=== PATIENT | male | born 1950 | race African-American/Black ===

== ENCOUNTER 2017-03-15 17:44 | Inpatient (IN) | payer MEDICARE ==
--- NOTE | 2017-03-15 21:01 | PDOC.EVN ---
Event Note - Event Note Event Note: [id number] H&P Dictated 1. Pneumonia 2. Acute copd exacerbation 3. HTN 4. Chronic respiratory failure plan: see orders
[2017-03-15 21:11] LABS: Oxyhemoglobin 87.9 % (94.0-97.0); Sodium 139 mmol/L (135-148)
[2017-03-15 21:14] LABS: Mode Nasal Cannula; Modified Allen's Test POSITIVE; Vent NO
[2017-03-15] MEDS ORDERED: HYDROcodone/Acetaminophen 5/325 mg Tablet PO PRN (21:19)
[2017-03-15] MEDS ORDERED: Ondansetron HCl/PF 4 MG/2 ML Vial IVP PRN (21:19)
[2017-03-15] MEDS ORDERED: Acetaminophen 325 MG TAB PO PRN (21:19)
[2017-03-15 21:33] LABS: Troponin I 0.031 ng/mL (< 0.028)
[2017-03-15] MEDS ORDERED: Vancomycin HCl 1.5 GM in Sodium Chloride 0.9% 250 ML 300 ML IVPB SCH (23:00)
[2017-03-15 23:48] LABS: Troponin I 0.019 ng/mL (< 0.028)
[2017-03-16 00:56] VITALS: BMI 22.3
[2017-03-16] MEDS: Sodium Chloride 0.9% 1,000 ML IV SCH ×2 (01:40→17:42)
[2017-03-16] MEDS: methylPREDNISolone Sod Succ/PF 125 MG/2 ML VIAL IVP SCH ×3 (01:54→13:17)
[2017-03-16] MEDS: Piperacillin/Tazobactam 3.375 GM in Sodium Chloride 0.9% 100 ML IVPB SCH ×5 (02:01→23:19)
[2017-03-16] MEDS: Vancomycin HCl 1.5 GM in Sodium Chloride 0.9% 250 ML 300 ML IVPB SCH ×2 (02:58→13:22)
[2017-03-16 05:46] LABS: Band 11 % (5-11); Hematocrit 46.8 % (42.0-52.0); Neutrophil 84 % (42-75); Red Blood Cell (RBC) Count 4.69 mill/uL (4.70-6.10); White Blood Cell (WBC) Count 15.4 thou/uL (4.8-10.8)
[2017-03-16 06:06] LABS: Anion Gap 13 mmol/L (10-20); BUN (Urea Nitrogen) 9 mg/dL (8.4-25.7); Calc. Creatinine Clearance 113 mL/min (70-130); Calcium 9.6 mg/dL (7.8-10.44); Carbon Dioxide 32 mmol/L (23-31); Chloride 97 mmol/L (98-107); Estimated GFR-MDRD Greater than 90
[2017-03-16 06:13] LABS: Troponin I 0.025 ng/mL (< 0.028)
--- NOTE | 2017-03-16 06:22 | HP ---
DATE OF ADMISSION: 03/15/2017 CHIEF COMPLAINT: Dyspnea. HISTORY OF PRESENT ILLNESS: Patient is a 66-year-old male with past medical history of COPD, chronic respiratory failure, hypertension, now came to ER complaining of dyspnea. Dyspnea started all of sudden, constant, it has been going on for the past 1 week. Also had sputum production, sputum brown in color. Complains of some low-grade fever and chills also. Patient initially went to outside ER and patient was transferred here. Patient also says he has been intubated in the past, and the last COPD exacerbation was 2 years back. PAST MEDICAL HISTORY: Hypertension, COPD, chronic respiratory failure. PAST SURGICAL HISTORY: None. SOCIAL HISTORY: He used to smoke, but not smoke anymore. Denies alcohol, denies any drugs. FAMILY HISTORY: Positive for heart problems. REVIEW OF SYSTEMS: Constitutional: Positive for fever and chills. Eyes: Denies any vision problems. Ears: Denies any hearing loss. Neck: Denies any neck pain. Cardiovascular System: Denies any chest pain. Positive for chest tightness. Respiratory System: Positive for cough and sputum production. Positive for dyspnea. Gastrointestinal: Denies nausea, vomiting. Cranial nerve system: Denies syncope. Psychiatric: Denies anxiety. Integument: Denies any rash. Musculoskeletal: Denies any joint deformities. All other review of systems are reviewed and are negative. PHYSICAL EXAMINATION: CONSTITUTIONAL/VITAL SIGNS: At the time of H&P performed, blood pressure is 112 /71, heart rate 109, pulse ox 93% on oxygen. GENERAL: The patient appears tired. HEENT: Anterior nares patent. Nose normal. Ears normal. Teeth intact. Tongue is moist. NECK: Supple. No JVD. CARDIOVASCULAR SYSTEM: S1, S2 present. Tachycardic. No murmurs, no rubs, no gallops. RESPIRATORY SYSTEM: Diminished air entry bilaterally. Positive for wheezing. Mild tachypnea seen. GASTROINTESTINAL: Abdomen is soft, nontender, no guarding, no organomegaly, no masses felt. INTEGUMENTARY: No rashes are seen. CRANIAL NERVES SYSTEM: Cranial nerves intact. Follows commands. Strength intact. Sensory intact. PSYCHIATRIC: Mood appropriate at this time. MUSCULOSKELETAL: No edema. LABORATORY DATA: At the time of H&P performed sodium 141, potassium 3.6, chloride 94, CO2 of 33, BUN of 10, creatinine of 0.79. CBC showed white count 12, hemoglobin 15.1, platelet count is 336. IMAGING: Chest x-ray, CT chest, positive for moderate sensitivity study showing no evidence of pulmonary embolism in the larger arterial branches, small emboli and more peripheral ones would be missed in this study and emphysematous changes seen with extensive severe lung consolidation. ASSESSMENT AND PLAN: The patient is 66-year-old male: 1. Pneumonia. Plan to start patient on broad spectrum antibiotics. Plan to admit the patient to the hospital and monitor patient closely. 2. Acute chronic obstructive pulmonary disease exacerbation. Plan to start the patient on breathing treatments and IV steroids. We will go ahead and check ABG stat. If ABG shows respiratory acidosis we will go ahead and place the patient on BiPAP. We will monitor respiratory status closely. 3. Hypertension. Monitor blood pressure. Continue home blood pressure meds. 4. Chronic respiratory failure. Continue oxygen nasal cannula. Case was discussed in detail with the patient and patient's also. LEON
[2017-03-16] MEDS: Enoxaparin Sodium 40 MG/0.4 ML SYRINGE SC SCH (09:08)
[2017-03-16] MEDS ORDERED: Benzonatate 100 MG CAP PO PRN (09:33)
[2017-03-16] MEDS ORDERED: hydrALAZINE 20 MG/ML VIAL SLOW IVP PRN (09:36)
--- NOTE | 2017-03-16 17:43 | PDOC.PN ---
- Subjective Encounter Start Date: 03/16/17 Encounter Start Time: 17:41 Patient seen and examined. No new complaints. No overnight events - Objective MAR Reviewed: Yes Vital Signs & Weight: Vital Signs (12 hours) Temp Pulse Resp BP BP Pulse Ox 03/16/17 16:54 97.7 F 99 16 154/74 H 90 L 03/16/17 16:23 102 H 16 03/16/17 11:49 96 16 03/16/17 11:34 97.9 F 96 20 116/65 98 03/16/17 08:00 98.8 F 100 16 97 03/16/17 07:52 90 L 03/16/17 07:49 100 16 03/16/17 07:48 98.8 F 98 18 150/75 H 97 Weight Weight 174 lb I&O: 03/15/17 03/16/17 03/17/17 06:59 06:59 06:59 Intake Total 1910 Output Total 700 Balance 1210 Result Diagrams: 03/16/17 04:59 03/16/17 04:59 Phys Exam - Physical Examination Constitutional: NAD HEENT: PERRLA Neck: no nodes coarse bs, some scattered rhonchi Cardiovascular: RRR Gastrointestinal: non-tender Musculoskeletal: no edema Neurological: normal sensation Psychiatric: A&O x 3 Dx/Plan (1) Sepsis Code(s): A41.9 - SEPSIS, UNSPECIFIED ORGANISM Status: Acute (2) PNA (pneumonia) Code(s): J18.9 - PNEUMONIA, UNSPECIFIED ORGANISM Status: Acute (3) HTN (hypertension) Code(s): I10 - ESSENTIAL (PRIMARY) HYPERTENSION Status: Acute (4) Acute and chronic respiratory failure ([id number]) Code(s): J96.20 - ACUTE AND CHR RESP FAILURE, UNSP W HYPOXIA OR HYPERCAPNIA Status: Acute (5) COPD exacerbation Code(s): J44.1 - CHRONIC OBSTRUCTIVE PULMONARY DISEASE W (ACUTE) EXACERBATION Status: Acute - Plan * cont currents mx * f/u labs * f/u pulm rec's
--- NOTE | 2017-03-16 18:12 | CON ---
DATE OF CONSULTATION: 03/16/2017 Mr. Oliver is a patient of mine for quite some time. He presented with complaints of shortness of br eath. He says he got out of the car to get the mail the other day before Thanksgiving when it was ra ining and by the time he got back in the car he was soaked. Over the weekend he started getting shor t of breath and coughing and subsequently presented and has been admitted to the hospital. He has had some purulent sputum. He came over from I believe the [place] ER and was subsequently admitted. PAST MEDICAL HISTORY: Remarkable for, 1. Hypertension. 2. History of COPD. 3. History of chronic respiratory failure, on home oxygen. 4. History of mechanical ventilation in the past. He quit smoking after that event and has done rel atively well since that time and he has remained relatively hospital free. 5. History of an admission in 06/2014 requiring noninvasive ventilation. FAMILY HISTORY: Positive for asthma. SOCIAL HISTORY: He is a nonsmoker, nondrinker now, former smoker. ALLERGIES: He has no drug allergies. REVIEW OF SYSTEMS: Otherwise negative. He says he feels better than he felt when he presented. PHYSICAL EXAMINATION: GENERAL: He is afebrile, heart rate 96, respiratory rate 20, blood pressure 116/65. HEENT: Pupils are equal. Sclerae is anicteric. NECK: Supple. LUNGS: Distant and equal slightly prolonged expiratory phase. HEART: Regular rhythm, distant S1 and S2. ABDOMEN: Soft and nontender. EXTREMITIES: Without asymmetry. LABORATORY DATA: White count 15.4, hemoglobin 14.5, platelets 324. Sodium 138, potassium 4, chlorid e 97, bicarbonate 32, BUN 9, creatinine 0.7. Blood gas, pH 7.40, CO2 57, pO2 59. Chest CT done over in [place] showed bibasilar infiltrates, extensive bullous disease is identified. IMPRESSION: 1. Community-acquired pneumonia. 2. Underlying severe chronic obstructive pulmonary disease. 3. Chronic respiratory failure, on home oxygen. 4. Steroid dependence. PLAN: Antibiotics, steroids, nebulizer treatments, hydration, serial exams. We will follow with the other physicians caring for her.
[2017-03-17] MEDS: Piperacillin/Tazobactam 3.375 GM in Sodium Chloride 0.9% 100 ML IVPB SCH ×2 (05:13→12:29)
[2017-03-17 05:27] LABS: Anion Gap 9 mmol/L (10-20); BUN (Urea Nitrogen) 14 mg/dL (8.4-25.7); Calc. Creatinine Clearance 111 mL/min (70-130); Calcium 9.3 mg/dL (7.8-10.44); Carbon Dioxide 37 mmol/L (23-31); Chloride 99 mmol/L (98-107); Estimated GFR-MDRD Greater than 90
[2017-03-17] MEDS: Sodium Chloride 0.9% 1,000 ML IV SCH (05:49)
[2017-03-17 06:11] LABS: Band 5 % (5-11); Hematocrit 42.2 % (42.0-52.0); Macrocytosis SLIGHT = 6-15 cells (100X) (0-5/hpf); Neutrophil 87 % (42-75); Polychromasia SLIGHT = 2-3 cells (100X) (0-2/hpf); Reactive Lymphocytes 1 % (0-10); White Blood Cell (WBC) Count 17.3 thou/uL (4.8-10.8)
[2017-03-17] MEDS: Atorvastatin Calcium 20 MG TAB PO SCH (09:49)
[2017-03-17] MEDS: Amlodipine 5 MG TAB PO SCH (09:49)
[2017-03-17] MEDS: Azithromycin 250 MG TAB PO SCH (09:49)
[2017-03-17] MEDS: Enoxaparin Sodium 40 MG/0.4 ML SYRINGE SC SCH (09:50)
--- NOTE | 2017-03-17 14:43 | PDOC.PN ---
- Subjective Encounter Start Date: 03/17/17 Encounter Start Time: 14:42 Patient seen and examined. No new complaints. No overnight events - Objective MAR Reviewed: Yes Vital Signs & Weight: Vital Signs (12 hours) Temp Pulse Resp BP Pulse Ox 03/17/17 12:22 97.8 F 92 18 124/64 93 L 03/17/17 11:00 96 16 03/17/17 09:50 97.9 F 96 18 95 03/17/17 09:49 95 03/17/17 09:44 97.9 F 95 18 131/72 95 03/17/17 07:00 96 03/17/17 06:54 100 16 03/17/17 05:05 97.6 F 96 20 142/70 H 96 Weight Weight 179 lb 4.8 oz I&O: 03/16/17 03/17/17 03/18/17 06:59 06:59 06:59 Intake Total 3290 Output Total 1575 Balance 1715 Result Diagrams: 03/17/17 04:42 03/17/17 04:42 Phys Exam - Physical Examination Constitutional: NAD HEENT: PERRLA Neck: no JVD coarse bs Cardiovascular: no significant murmur Gastrointestinal: non-tender Musculoskeletal: pulses present Neurological: moves all 4 limbs Psychiatric: A&O x 3 Dx/Plan (1) Sepsis Code(s): A41.9 - SEPSIS, UNSPECIFIED ORGANISM Status: Acute (2) PNA (pneumonia) Code(s): J18.9 - PNEUMONIA, UNSPECIFIED ORGANISM Status: Acute (3) HTN (hypertension) Code(s): I10 - ESSENTIAL (PRIMARY) HYPERTENSION Status: Acute (4) Acute and chronic respiratory failure ([id number]) Code(s): J96.20 - ACUTE AND CHR RESP FAILURE, UNSP W HYPOXIA OR HYPERCAPNIA Status: Acute (5) COPD exacerbation Code(s): J44.1 - CHRONIC OBSTRUCTIVE PULMONARY DISEASE W (ACUTE) EXACERBATION Status: Acute - Plan * feels better * cont current mx * dr brown input appreciated
--- NOTE | 2017-03-17 20:49 | PRG ---
DATE OF SERVICE: 03/17/2017 SUBJECTIVE: Shawn Oliver says he is feeling better. He is not back to his baseline, but he is gett ing close. OBJECTIVE: VITAL SIGNS: He is afebrile, heart rate is in the 80s, respiratory rate 16, oximetry is 93 on 3 lite rs, blood pressure 124/64. LUNGS: Remarkable for equal breath sounds that are distant. HEART: Regular rhythm. ABDOMEN: Soft. LABORATORY DATA: White count 17.3, hemoglobin 13.3, platelets 345. Electrolytes are normal with the exception of a bicarbonate of 37. IMPRESSION: Chronic obstructive pulmonary disease exacerbation. PLAN: We will continue IV steroids and nebulizer treatments. His antibiotics can be converted to just p.o. I think leaving him on just the Zithromax will be adequate. So vancomycin has been discontinued. His labs are stable and we do not need frequent blood draws. He may be a candidate to go home within 24 hours to follow up with me closely in the office.
[2017-03-18] MEDS: Atorvastatin Calcium 20 MG TAB PO SCH (08:30)
[2017-03-18] MEDS: Azithromycin 250 MG TAB PO SCH (08:31)
[2017-03-18] MEDS: Enoxaparin Sodium 40 MG/0.4 ML SYRINGE SC SCH (08:31)
[2017-03-18] MEDS: Amlodipine 5 MG TAB PO SCH (08:31)
--- NOTE | 2017-03-18 13:08 | PDOC.PN ---
- Subjective Encounter Start Date: 03/18/17 Encounter Start Time: 09:45 Subjective: breathing better, is watching tv - Objective MAR Reviewed: Yes Vital Signs & Weight: Vital Signs (12 hours) Temp Pulse Resp BP BP Pulse Ox 03/18/17 10:38 90 16 03/18/17 08:34 97.6 F 98 24 H 166/77 H 91 L 03/18/17 08:31 98 166/77 H 03/18/17 08:00 97.6 F 98 24 H 03/18/17 06:57 102 H 16 03/18/17 04:00 98.1 F 102 H 18 137/67 92 L 03/18/17 02:29 92 16 94 L Weight Weight 179 lb 4.8 oz I&O: 03/17/17 03/18/17 03/19/17 06:59 06:59 06:59 Intake Total 3290 1526 360 Output Total 1575 1120 Balance 1715 406 360 Result Diagrams: 03/17/17 04:42 03/17/17 04:42 Phys Exam - Physical Examination HEENT: PERRLA, moist MMs Neck: no JVD, supple Respiratory: no wheezing, no rales rhonchi+ Cardiovascular: RRR, no significant murmur Gastrointestinal: soft, non-tender, positive bowel sounds Musculoskeletal: no edema, pulses present Neurological: non-focal, moves all 4 limbs Psychiatric: A&O x 3 Dx/Plan (1) COPD exacerbation Code(s): J44.1 - CHRONIC OBSTRUCTIVE PULMONARY DISEASE W (ACUTE) EXACERBATION Status: Acute (2) HTN (hypertension) Code(s): I10 - ESSENTIAL (PRIMARY) HYPERTENSION Status: Chronic Qualifiers: Hypertension type: essential hypertension Qualified Code(s): I10 - Essential (primary) hypertension (3) Acute and chronic respiratory failure ([id number]) Code(s): J96.20 - ACUTE AND CHR RESP FAILURE, UNSP W HYPOXIA OR HYPERCAPNIA Status: Acute Qualifiers: Respiratory failure complication: hypoxia and hypercapnia Qualified Code(s) : J96.21 - Acute and chronic respiratory failure with hypoxia; J96.22 - Acute and chronic respiratory failure with hypercapnia; J96.22 - Acute and chronic respiratory failure with hypercapnia; J96.22 - Acute and chronic respiratory failure with hypercapnia - Plan hemostable -: has been cleared by for discharge -: steroid taper, zithromax and duonebs -: is on home O2 at 2 liters * .
--- NOTE | 2017-03-18 15:06 | PRG ---
DATE OF SERVICE: 03/18/2017 SUBJECTIVE: Shawn Oliver is doing well. He says he is back to his baseline. OBJECTIVE: LUNGS: Clear today. HEART: Regular rhythm. ABDOMEN: Soft. VITAL SIGNS: Stable. PLAN: He has oxygen at home. He has nebulizer at home with medicine. I have written a prescription for 40 of prednisone to take for 4 days, then 20 mg a day until he sees me in a couple of weeks, als o written a prescription for Z-SKYLER 250.
[2017-03-18 15:29] VITALS: TEMP 98.4
[2017-03-18 16:32] VITALS: BP 157/87
--- NOTE | 2017-03-18 17:04 | DIS ---
DATE OF ADMISSION: 03/16/2017 DATE OF DISCHARGE: 03/18/2017 DISCHARGE DISPOSITION: To home. PRIMARY DISCHARGE DIAGNOSES: Acute chronic obstructive pulmonary disease exacerbation, resolving; ac squaxin on chronic respiratory failure, resolved with hypoxia and hypercapnia. SECONDARY DISCHARGE DIAGNOSIS: Hypertension. PROCEDURES DONE DURING HOSPITALIZATION: The patient has had CT chest done on 03/15/2017 which showed no evidence of PE in larger arterial branches, bilateral pneumonia with emphysematous changes seen, blood cultures x2 no growth. Respiratory culture was contaminated. Had white count of 15 on the day of admission with 84% neutrophils. One set of troponin was 0.03, but subsequent two sets were withi n normal limits. DISCHARGE MEDICATIONS: DuoNeb q.6 hourly, Norvasc 5 mg p.o. daily, atorvastatin 20 mg p.o. daily, Zi thromax 250 mg daily duration per Dr. Orr who was given a prescription, Lasix 40 mg p.o. daily, Pro tonix 40 mg p.o. daily, prednisone taper per Dr. Orr's advice. DISCHARGE PLAN: Patient to follow up with Dr. Orr in 2 weeks. He also needs to follow up with his primary care physician in 1 week. BRIEF COURSE DURING HOSPITALIZATION: The patient initially got admitted on with complaints of s hortness of breath. His initial CT and chest x-ray were consistent with bilateral basal pneumonia wi th emphysema and COPD exacerbation. He was placed on broad spectrum antibiotics along with IV steroi ds and DuoNebs. He has had consultation with Dr. Orr for Pulmonology. The patient has done well w ith the above measures. He has been cleared by Dr. Orr for discharge. Dr. Orr was written presc riptions for steroids and antibiotics. He needs to follow up with him in 2 weeks. He was otherwise hemodynamically stable. He is chronically on 2 liters nasal cannula at home for his COPD. Please se e the face to face documentation on [employer] for the day of discharge.
--- NOTE | 2017-04-17 13:07 | EKG ---
Test Reason : Blood Pressure : / mmHG Vent. Rate : 107 BPM Atrial Rate : 107 BPM P-R Int : 134 ms QRS Dur : 082 ms QT Int : 356 ms P-R-T Axes : 065 056 081 degrees QTc Int : 475 ms Sinus tachycardia with Premature atrial complexes Nonspecific T wave abnormality Abnormal ECG Confirmed by NATASHA RENNER M.D. ([id number]), movie editor SYED BARRETT ([id number]) on 04/17/2017 1:07:29 PM Referred By: Confirmed By:NATASHA RENNER M.D.
== END 2017-03-18 16:25 | disposition home or self-care (01) | DRG 193 ==
LOC: ERS 17:44 → 2NO 03-16 00:21 → T4-A 03-17 21:25
PROVIDERS: ADMIT Internal Medicine; ATTEND Internal Medicine
DX: J18.9 Pneumonia, unspecified organism (principal); J96.21 Acute and chronic respiratory failure with hypoxia; Z99.81 Dependence on supplemental oxygen; J96.22 Acute and chronic respiratory failure with hypercapnia; J44.0 Chronic obstructive pulmonary disease with (acute) lower respiratory infection; J44.1 Chronic obstructive pulmonary disease with (acute) exacerbation; Z87.891 Personal history of nicotine dependence; I10 Essential (primary) hypertension; Z79.51 Long term (current) use of inhaled steroids
CPT/HCPCS: 36415; 80048; 82805; 84484; 85025; 87040; 87070; 87205; 93005; 94640; 94760; A4216; J1650; J2543; J2920; J2930; J3370; J7050; J7620

== ENCOUNTER 2018-04-21 15:23 | Inpatient (IN) | payer MEDICARE ==
[2018-04-21 16:09] LABS: #Lymphocytes 0.9 thou/uL (1.20-3.40); #Monocytes 0.6 thou/uL (0.11-0.59); #Neutrophils 11.9 thou/uL (1.40-6.50); %Basophils 0.2 % (0.0-1.0); %Lymphocytes 6.5 % (21.0-51.0); %Monocytes 4.2 % (0.0-10.0); %Neutrophils 89.1 % (42.0-75.0); Hemoglobin 12.8 g/dL (14.0-18.0); Mean Corpuscular HGB CONC 30.6 g/dL (32.0-36.0); Mean Corpuscular Hemoglobin 27.3 pg (27.0-31.0); Mean Corpuscular Volume 89.2 fL (78.0-98.0); Mean Platelet Volume 7.2 fL (7.4-10.4); Platelet Count 428 thou/uL (130-400); RBC Distribution Width 16.2 % (11.5-14.5); Red Blood Cell (RBC) Count 4.71 mill/uL (4.70-6.10); White Blood Cell (WBC) Count 13.4 thou/uL (4.8-10.8)
--- NOTE | 2018-04-21 16:12 | RAD ---
CHEST ONE VIEW: HISTORY: Chest pain. Cough. COMPARISON: Radiograph from 03/15/[address] chest from 03/15/2017. FINDINGS: There is mild increased parenchymal density in the right mid lung, relative to the comparison examina tion. Scarring in both lower lobes is similar. IMPRESSION: Mild increased density in the right mid lung. A nonemergent CT chest is recommended to evaluate for an underlying malignant process. CODE T POS: MEET
[2018-04-21 16:14] LABS: ALT (SGPT) 39 U/L (8-55); AST (SGOT) 55 U/L (5-34); Albumin 3.2 g/dL (3.4-4.8); Alkaline Phosphatase 436 U/L (40-150); Anion Gap 21 mmol/L (10-20); BUN (Urea Nitrogen) 13 mg/dL (8.4-25.7); Bilirubin, Total 1.9 mg/dL (0.2-1.2); CK (CPK) 149 U/L (30-200); Calc. Creatinine Clearance 0 mL/min (70-130); Calcium 8.9 mg/dL (7.8-10.44); Carbon Dioxide 24 mmol/L (23-31); Chloride 94 mmol/L (98-107); Estimated GFR-MDRD Greater than 90; Globulin 3.3 g/dL (2.4-3.5); Glucose 175 mg/dL (80-115); Potassium 3.6 mmol/L (3.5-5.1); Protein, Total 6.5 g/dL (5.8-8.1); Sodium 135 mmol/L (136-145)
[2018-04-21] MEDS ORDERED: Bisacodyl 5 MG TAB PO PRN (19:41)
[2018-04-21] MEDS ORDERED: Acetaminophen 325 MG TAB PO PRN (19:41)
[2018-04-21] MEDS ORDERED: Senokot S 8.6-50 MG TAB PO PRN (19:41)
[2018-04-21] MEDS ORDERED: HumaLOG 300 UNITS/3 ML VIAL SC PRN (19:53)
[2018-04-21] MEDS ORDERED: Dextrose 5% in Water 1,000 ML IV PRN (19:53)
[2018-04-21] MEDS ORDERED: Dextrose 50% Abboject 50 ML SYRINGE SLOW IVP PRN (19:53)
[2018-04-21] MEDS ORDERED: Furosemide 40 MG/4 ML VIAL SLOW IVP SCH (20:00)
[2018-04-21] MEDS ORDERED: Famotidine 20 MG TAB PO SCH (21:00)
[2018-04-21] MEDS ORDERED: Furosemide 40 MG/4 ML VIAL ONE (22:51)
[2018-04-21] MEDS ORDERED: Levofloxacin 500 mg/D5W 100 ml Premix Bag ONE (22:58)
--- NOTE | 2018-04-22 01:36 | HP ---
CHIEF COMPLAINT: Shortness of breath. HISTORY OF PRESENT ILLNESS: The patient is a 67-year-old male with history of significant COPD, who was admitted here approximately 1 year ago with COPD exacerbation. The patient reports that he started having some shortness of breath about 10 days ago with an associated cough, which was wet but nonproductive. He reports some discomfort in his left upper chest area, which he describes as sharp in nature and tends to be worse when lying down. He has been using his home nebulizers every 4 hours, but has not significantly improved. He called Dr. Orr's office and was called out doxycycline. However, with using that, the patient reports the symptoms have only progressed, so he presented to the emergency department when that was completed and he was not improved. The patient also reports that he has been having pain in his lower back. He reported that he lifted a freezer and does not believe he had his feet right and has had pain since then. He has been using Advil with no improvement. Now, it tends to radiate down both of his legs. The patient also reports a 3-week history of bilateral lower extremity edema. He reports that it has become quite severe. He has called Dr. Fountain, who is his PCP, and he has received couple of types of different diuretics but no avail. The patient does believe that he has been told he has had congestive heart failure in the past. PAST MEDICAL HISTORY: Notable for COPD, hypertension, chronic respiratory failure and presumably some congestive heart failure. He also has medications on board for diabetes. PAST SURGICAL HISTORY: The patient reports bilateral thoracenteses in 2013, which was presumably due to congestive heart failure symptoms. FAMILY HISTORY: Mother of stomach cancer. Father with chronic obstructive pulmonary disease. SOCIAL HISTORY: The patient is a nondrinker. He quit smoking in 2012. Denies drugs. He is . He is full code and his would be his surrogate decision maker. REVIEW OF SYSTEMS: The patient reports no bowel movement for 3 days. He denies any fevers or chills. He also reports that he has pain in his shoulders when trying to lift his arms. He has some skin irritation over his back, which he relates to not being able to wash his back adequately because of his shoulder symptoms. He also reports that he has lost weight since . He initially said he lost 60 pounds, but his believes it is more likely about 15 pounds. His appetite has simply been poor. All other systems were reviewed and all pertinent positives and negatives noted in the history of present illness. ALLERGIES: NONE. CURRENT MEDICATIONS: 1. Albuterol inhaler. 2. Amlodipine 5 mg daily. 3. Lasix 40 mg daily. 4. Prednisone 20 mg daily. 5. Metformin 500 mg b.i.d. 6. Aldactone 50 mg daily. 7. Doxycycline 100 mg b.i.d. 8. Pantoprazole 40 mg daily. PHYSICAL EXAMINATION: VITAL SIGNS: Most recent vitals; BP 138/94, pulse 106, respirations 24, temperature 98, and O2 saturation 98% on 2 L. GENERAL APPEARANCE: Age-appropriate male. He is in no distress. He is awake, alert, pleasant, and cooperative. He is wearing nasal cannula oxygen, remains a bit tachypneic, but able to generally converse. HEENT: PERRL. His eyes do bulge a bit with a bit of proptosis, has no OP lesions. Moist, pink oral mucosa. NECK: Supple and symmetric with no lymphadenopathy, JVD, or carotid bruits. HEART: Regular rate and rhythm without murmurs, gallops, or rubs. Very faint to auscultation. LUNGS: Clear to auscultation, but very poor air exchange throughout. ABDOMEN: Soft, nontender, and nondistended. Positive bowel sounds. No masses. No organomegaly. EXTREMITIES: Have 3+ pitting edema to the level of the knee. SKIN: Reveals some darkened noninflamed dermatitis over the back, which is somewhat scaly. MUSCULOSKELETAL: Reveals significant muscle loss over the scapula and shoulder girdle areas. DIAGNOSTIC DATA: Chest x-ray shows mild increased density in the right mid lung. This has increased from 03/15/2017 x-ray. Scarring in both lower lobes, which is similar to that comparison. EKG shows sinus tachycardia at [address] and T-wave changes. LABORATORY DATA: White count 13.4, hemoglobin 12.8, platelets 428. Sodium 135, potassium 3.6, chloride 94, CO2 of 24, BUN 13, creatinine 0.93, glucose 175, AST 55, ALT 39, alkaline phosphatase 436. IMPRESSION AND PLAN: 1. Acute on chronic hypoxic respiratory failure. The patient has chronic obstructive pulmonary disease, some scarring in the lungs and possible pneumonia. 2. Possible pneumonia. The patient has a white count, which is likely related to his p.o. steroids, but has some abnormalities on his chest x-ray and wet cough that has not resolved with doxycycline. He likely has some bronchiectasis. We will cover it with Levaquin. 3. Chronic obstructive pulmonary disease exacerbation. Continue with nebulizer treatments. Supplemental oxygen as needed. Give some IV Solu-Medrol. Pulmonary consult. 4. Peripheral edema. The patient believes he has some history of congestive heart failure. Does not appear to be any echo reports within the computer since 2011. At that time, the patient had normal cardiac function. The patient has severe peripheral edema. He has been on diuretics and does not seem to be substantially improved. We will give him some IV and get echocardiogram. BNP is not elevated and is at 32.6. He does not appear to have significant pulmonary edema. 5. Hypertension. We will resume his usual home medications. Possible change from the amlodipine, should be considered given the degree of peripheral edema. 6. Low back pain in a patient with history of smoking and significant weight loss concerning for the possibility of bone disease including possible metastatic disease. We will obtain some lumbar x-rays. Elevated alkaline phosphatase could be contributory. 7. Elevated liver enzymes with elevated total bilirubin, AST and alkaline phosphatase. We will get right upper quadrant ultrasound. 8. Deep venous thrombosis and peptic ulcer disease prophylaxis. Job ID: [id number]
[2018-04-22 04:12] LABS: Anion Gap 19 mmol/L (10-20); BUN (Urea Nitrogen) 15 mg/dL (8.4-25.7); Calc. Creatinine Clearance 0 mL/min (70-130); Calcium 9.1 mg/dL (7.8-10.44); Carbon Dioxide 27 mmol/L (23-31); Chloride 94 mmol/L (98-107); Estimated GFR-MDRD Greater than 90; Glucose 116 mg/dL (80-115); Potassium 4.4 mmol/L (3.5-5.1); Sodium 136 mmol/L (136-145)
[2018-04-22 04:19] LABS: #Basophils 0.4 thou/uL (0.0-0.2); #Lymphocytes 0.6 thou/uL (1.20-3.40); #Monocytes 0.6 thou/uL (0.11-0.59); #Neutrophils 13.3 thou/uL (1.40-6.50); %Basophils 2.5 % (0.0-1.0); %Eosinophils 0.1 % (0.0-10.0); %Lymphocytes 3.7 % (21.0-51.0); %Monocytes 3.9 % (0.0-10.0); %Neutrophils 89.8 % (42.0-75.0); Hemoglobin 12.9 g/dL (14.0-18.0); Mean Corpuscular HGB CONC 31.1 g/dL (32.0-36.0); Mean Corpuscular Hemoglobin 27.8 pg (27.0-31.0); Mean Corpuscular Volume 89.2 fL (78.0-98.0); Mean Platelet Volume 7.2 fL (7.4-10.4); Platelet Count 431 thou/uL (130-400); RBC Distribution Width 16.4 % (11.5-14.5); Red Blood Cell (RBC) Count 4.63 mill/uL (4.70-6.10); White Blood Cell (WBC) Count 14.9 thou/uL (4.8-10.8)
[2018-04-22] MEDS ORDERED: Spironolactone 25 MG TAB PO SCH (08:00)
[2018-04-22] MEDS ORDERED: Amlodipine 5 MG TAB ONE (08:01)
[2018-04-22] MEDS ORDERED: Enoxaparin Sodium 40 MG/0.4 ML SYRINGE ONE (08:01)
[2018-04-22] MEDS: Amlodipine 5 MG TAB PO SCH ×2 (08:14→08:15)
--- NOTE | 2018-04-22 08:31 | CT ---
CT CHEST WITHOUT CONTRAST: Multiple axial tomograms were obtained through the chest without IV enhancement. INDICATION: Followup abnormal chest x-ray which described abnormal density in the right mid lung. FINDINGS: There is a 3.5 cm soft tissue density in the right lung base abutting the pleural surface of the righ t hemidiaphragm anteriorly. There is another pleural-based opacity in the right lung base laterally measuring 3.8 cm. This densi ty exhibits some internal air bronchograms and may be a focal area of consolidation/atelectasis. There is also pleural-based opacity in the peripheral right middle lobe which could represent focal a telectasis and infiltrate. There is a well circumscribed rounded nodular density in the anterior right middle lobe measuring rick roximately 1.3 cm AP dimension. There is a small 1.0 cm nodular density in the posterior right upper lobe and there is another 1.0 cm nodular density in the posterior mid right lower lobe near the pleur al surface. In the left lung, there are numerous pulmonary nodules identified. Most of these reside in the left lower lobe and are too numerous to count. These nodules measure in size from 3 to 10 mm. No evidence of mediastinal adenopathy. Images through the upper abdomen reveal numerous abnormal densities seen throughout the liver indicat ing diffuse hepatic metastatic disease. This is a new finding when compared to the CT scan of chest dated 03/15/2017. Osseous structures unremarkable. IMPRESSION: 1. There are numerous bilateral pulmonary nodules, there are larger mass-like densities in the right lung with the larger seen in the right lung base over the hemidiaphragm. Peripheral pleural-based o pacities may represent areas of inflammatory infiltrate and atelectasis. Continued followup recommen ded. 2. There is evidence of diffuse hepatic metastatic disease. POS: [facility]
--- NOTE | 2018-04-22 08:39 | RAD ---
LUMBAR SPINE 3 VIEWS HISTORY: A 67-year-old male with a history of abnormal x-ray with low back pain, lower extremity edema, and re spiratory distress. FINDINGS: There are generalized changes of spondylosis. There is less than 50% vertical height loss of the L1 vertebral body, evidence for mild compression fracture, age indeterminate. IMPRESSION: Less than 50% vertical height loss compression fracture of L1, age indeterminate. Lumbar spondylosis with mild dextroscoliosis. If there is concern for this being a metastatic process, followup MRI sh ould be considered. POS: OFF
--- NOTE | 2018-04-22 08:48 | ULT ---
LIMITED ABDOMINAL ULTRASOUND WITH RIGHT UPPER QUADRANT ULTRASOUND: INDICATION: Elevated liver function tests. FINDINGS: The liver is diffusely heterogeneous. Findings correspond to the CT chest findings which showed evid ence of diffuse liver metastatic disease. Images of the gallbladder reveal dense echogenic sludge, thickened wall, and small gallstones. The c ommon duct is not adequately visualized. The pancreas is obscured. The right kidney is imaged and i s unremarkable. IMPRESSION: 1. Diffusely heterogeneous liver consistent with diffuse liver metastasis. This is confirmed on cherelle ged through the liver on CT chest obtained earlier today. 2. The gallbladder shows evidence of echogenic sludge, thickened wall, and gallstones. POS: [facility]
[2018-04-22] MEDS: Enoxaparin Sodium 40 MG/0.4 ML SYRINGE SC SCH (08:55)
--- NOTE | 2018-04-22 12:50 | PDOC.PN ---
- Subjective Encounter Start Date: 04/22/18 Encounter Start Time: 14:00 Subjective: Patient breathing a little easier. Cough improved some. - Objective Resuscitation Status - Order Detail: 04/21/18 19:41 Resuscitation Status Routine Resuscitation Status: FULL: Full Resuscitation MAR Reviewed: Yes Vital Signs & Weight: Vital Signs (12 hours) Temp Pulse Resp BP BP Pulse Ox 04/22/18 11:10 97.8 F 106 H 24 H 132/86 95 04/22/18 10:36 109 H 18 95 04/22/18 08:15 125 H 192/132 H 04/22/18 08:14 125 H 196/132 H 04/22/18 07:51 97.5 F L 125 H 26 H 192/136 H 04/22/18 04:42 90 18 96 04/22/18 04:00 98.1 F 98 22 H 117/85 97 I&O: 04/21/18 04/22/18 04/23/18 06:59 06:59 06:59 Intake Total 200 Output Total 400 Balance -200 Result Diagrams: 04/22/18 03:46 04/22/18 03:46 Additional Labs: Accuchecks 04/22/18 04/22/18 11:09 06:41 POC Glucose 154 H 113 H Phys Exam - Physical Examination mild resp distress HEENT: moist MMs Respiratory: wheezing present Cardiovascular: RRR, no significant murmur Gastrointestinal: soft, positive bowel sounds significantly enlarged, hard liver palpable, non-tender Neurological: non-focal, moves all 4 limbs Psychiatric: normal affect, A&O x 3 Dx/Plan (1) Acute and chronic respiratory failure ([id number]) Code(s): J96.20 - ACUTE AND CHR RESP FAILURE, UNSP W HYPOXIA OR HYPERCAPNIA Status: Acute Qualifiers: (2) COPD exacerbation Code(s): J44.1 - CHRONIC OBSTRUCTIVE PULMONARY DISEASE W (ACUTE) EXACERBATION Status: Acute (3) Lung mass Code(s): R91.8 - OTHER NONSPECIFIC ABNORMAL FINDING OF LUNG FIELD Status: Acute Comment: cancer vs. pneumonia (4) Liver metastases Code(s): C78.7 - SECONDARY MALIG NEOPLASM OF LIVER AND INTRAHEPATIC BILE DUCT Status: Acute Comment: seen on CT, consult GI, may need biopsy (5) Lumbar compression fracture Code(s): S32.000A - WEDGE COMPRESSION FRACTURE OF UNSP LUMBAR VERTEBRA, INIT Status: Acute Comment: will check MRI to make sure no metastatic disease to spine - Plan cont current plan of care, continue antibiotics, respiratory therapy Informed patient and family about the cancer and plan for workup. * . - Discharge Day Encounter end time: 14:35
--- NOTE | 2018-04-22 18:24 | MRI ---
MRI LUMBAR SPINE: 04/22/2018 PROVIDED CLINICAL HISTORY: Compression fracture. FINDINGS: Five lumbar vertebral bodies are demonstrated on radiographs performed earlier same date. Lumbar ali gnment appears normal. There is mild superior endplate compression deformity of L1. Vertebral body heights appear otherwise maintained. Schmorl's node formation is prominent at L4 and T12. No focal concerning regional marrow signal abnormality is evident. The conus medullaris is normal in signal a nd terminates at an appropriate level. T12-L1: There is no significant central canal or foraminal narrowing apparent. L1-L2: There is no significant central canal or foraminal narrowing apparent. L2-L3: There is a broad-based disk bulge without significant central canal stenosis apparent. There is superimposed right foraminal broad disk protrusion, which produces moderate-severe foraminal narr owing. L3-L4: There is a broad-based disk bulge and bilateral facet arthritis. There is severe left forami nal narrowing. There is mild right foraminal narrowing. There is mild central canal stenosis. L4-L5: There is a broad-based disk bulge and bilateral facet arthritis. There is moderate-severe bi lateral foraminal narrowing. There is mild central canal stenosis with asymmetric effacement of the CSF surrounding the traversing right L5 nerve root. L5-S1: There is a broad-based disk bulge and bilateral facet arthritis. There is moderate to severe bilateral foraminal narrowing. There is mild central canal stenosis. IMPRESSION: 1. Superior endplate compression deformity of L1 without magnetic resonance findings to suggest a me tastatic process. 2. Advanced multilevel lumbar disk and facet degeneration, as above. POS: [facility]
[2018-04-22] MEDS: Mometasone/Formoterol 120 PUFF INHALER INH SCH (19:03)
--- NOTE | 2018-04-22 22:18 | CON ---
DATE OF CONSULTATION: HISTORY OF PRESENT ILLNESS: The patient is a 67-year-old gentleman, who was in his normal state of health until few weeks prior to admission when he developed worsening shortness of breath and abdominal distention. He did not have really any abdominal pain. He has had no nausea or vomiting. He says he has not eaten much because of his appetite, has been poor over the last several months. He does report weight loss, but he could not tell me how much. He reports he has not had any bowel movements over the last 3 days. He denies any prior endoscopic evaluation. PAST MEDICAL HISTORY: Includes COPD and hypertension. PAST SURGICAL HISTORY: Includes thoracentesis. SOCIAL HISTORY: He is a smoker. He smoked for 40 years. Alcohol, he denies any alcohol use. FAMILY HISTORY: Significant for mother, who had stomach cancer. MEDICATIONS: Include, 1. Prednisone 40 mg p.o. daily. 2. Protonix 40 mg p.o. daily. 3. Lasix 40 mg p.o. daily. 4. Zithromax 250 mg p.o. daily. 5. Lipitor 20 mg p.o. daily. 6. Norvasc 5 mg p.o. daily. 7. Albuterol. REVIEW OF SYSTEMS: CONSTITUTIONAL: No fever or chills. Positive weight loss. HEENT: Eyes; no blurred vision or double vision. ENT; no sore throat or earaches. CARDIOVASCULAR: No chest pain or palpitations. PULMONARY: Positive for shortness of breath. Positive for cough. Positive for wheeze. GI: See above. : No hematuria or dysuria. MUSCULOSKELETAL: No joint pain or muscle weakness. SKIN: No rashes. NEUROLOGIC: No numbness or seizure activity. PHYSICAL EXAMINATION: GENERAL: Shows a thin black male, in some mild respiratory distress. VITAL SIGNS: Temperature 97.8, pulse 106, respiratory rate 24, blood pressure 133/68. HEENT: Unremarkable. NECK: Supple. CHEST: Clear. CARDIOVASCULAR: Regular rate and rhythm. ABDOMEN: Soft, protuberant with significant hepatomegaly, approximately 12 fingerbreadths below the right costal margin. RECTAL: Normal. No stool in the vault. EXTREMITIES: Normal. LABORATORY DATA: Shows a white blood cell count of 13.4, hemoglobin 12.8, hematocrit 42.0. Chemistries show total bilirubin 1.9, AST 55, alkaline phosphatase 436. CT of the chest showed metastatic disease to the liver, numerous bilateral pulmonary nodules. Ultrasound confirms the same thing. ASSESSMENT: 1. Hepatic metastases-most likely lung primary. 2. Chronic obstructive pulmonary disease-the patient's present respiratory status would prevent any endoscopic evaluation. RECOMMENDATIONS: 1. Await Pulmonary opinion. 2. Tumor markers including CEA and alpha fetoprotein. Job ID: [id number]
--- NOTE | 2018-04-22 22:47 | CON ---
DATE OF CONSULTATION: HISTORY OF PRESENT ILLNESS: Shawn Oliver is a 67-year-old gentleman, who sees Dr. Orr on a regular basis. He presents now to the ER with increasing shortness of breath and abdominal distention. Since admission, his ultrasound of the abdomen showed diffuse liver metastasis. CT of chest shows multiple lung nodules and multiple liver mets. He saw Dr. Orr most recently in March. On most days, he has been able to walk even 500 feet without getting markedly short of breath. PAST MEDICAL HISTORY: End-stage COPD, on home oxygen. Respiratory failure. Hypertension. PAST SURGICAL HISTORY: None recently. SOCIAL HISTORY: Alcohol, none. Substance abuse, none. Former smoker. HOME MEDICINES: 1. Prednisone. 2. Protonix. 3. Lasix. 4. Zithromax. 5. Norvasc 5. 6. Albuterol. ALLERGIES: NONE. SOCIAL HISTORY: Otherwise, negative. FAMILY HISTORY: Otherwise, negative. REVIEW OF SYSTEMS: Negative. PHYSICAL EXAMINATION: VITAL SIGNS: Sats 97% on 2 L, pulse 106, temperature 97, blood pressure 132/68. CHEST: Decreased breath sounds with prolonged expiration. CARDIAC: Sinus tach. ABDOMEN: Massive, distended. Liver is massive, about 6 cm below the costal margin. EXTREMITIES: No edema. NEUROLOGIC: He is awake, alert, and responsive. LABORATORY DATA: White count 14,000 and H and H 12 and 41, platelet count 431. Lytes are normal. Bilirubin 1.9, alkaline phosphatase is 436, AST is 55. IMPRESSION: 1. Metastatic cancer, primary site unknown. 2. End-stage chronic obstructive pulmonary disease with extensive liver metastasis. Try and improve his pulmonary status with nebs, steroids, and Dulera. Prognosis is guarded. I do not see any lesion in the lung to biopsy at this stage. Best option if he needs a tissue diagnosis, would be a liver biopsy. We will notify Dr. Orr. Consultation note is 70 minutes, 50% direct patient care. Job ID: [id number]
[2018-04-23] MEDS: Mometasone/Formoterol 120 PUFF INHALER INH SCH ×2 (06:56→18:55)
--- NOTE | 2018-04-23 09:12 | PDOC.PN ---
- Subjective Encounter Start Date: 04/23/18 Encounter Start Time: 10:30 Subjective: Patient reports SOB has improved about 50% better, still -: not at baseline. No other complaints. - Objective Resuscitation Status - Order Detail: 04/21/18 19:41 Resuscitation Status Routine Resuscitation Status: FULL: Full Resuscitation MAR Reviewed: Yes Vital Signs & Weight: Vital Signs (12 hours) Temp Pulse Resp BP Pulse Ox 04/23/18 08:59 97.7 F 102 H 20 114/67 95 04/23/18 06:56 100 20 04/23/18 04:00 97.5 F L 90 18 137/82 97 04/23/18 02:01 94 18 96 04/22/18 22:33 95 16 97 Weight Weight 177 lb 9 oz I&O: 04/22/18 04/23/18 04/24/18 06:59 06:59 06:59 Intake Total 200 350 Output Total 400 350 Balance -200 0 Result Diagrams: 04/22/18 03:46 04/22/18 03:46 Additional Labs: Accuchecks 04/23/18 04/22/18 04/22/18 06:01 20:13 16:37 POC Glucose 116 H 172 H 144 H 04/22/18 11:09 POC Glucose 154 H Phys Exam - Physical Examination Constitutional: NAD HEENT: moist MMs Respiratory: wheezing present mild increased WOB, no tachypnea Cardiovascular: RRR, no significant murmur Gastrointestinal: soft, positive bowel sounds hard, enlarged liver edge Neurological: non-focal, moves all 4 limbs Psychiatric: normal affect, A&O x 3 Dx/Plan (1) Acute and chronic respiratory failure ([id number]) Code(s): J96.20 - ACUTE AND CHR RESP FAILURE, UNSP W HYPOXIA OR HYPERCAPNIA Status: Acute Qualifiers: (2) COPD exacerbation Code(s): J44.1 - CHRONIC OBSTRUCTIVE PULMONARY DISEASE W (ACUTE) EXACERBATION Status: Acute (3) Lung mass Code(s): R91.8 - OTHER NONSPECIFIC ABNORMAL FINDING OF LUNG FIELD Status: Acute Comment: cancer vs. pneumonia (4) Liver metastases Code(s): C78.7 - SECONDARY MALIG NEOPLASM OF LIVER AND INTRAHEPATIC BILE DUCT Status: Acute Comment: seen on CT, consult GI, may need biopsy (5) Lumbar compression fracture Code(s): S32.000A - WEDGE COMPRESSION FRACTURE OF UNSP LUMBAR VERTEBRA, INIT Status: Acute Comment: will check MRI to make sure no metastatic disease to spine - Plan cont current plan of care, continue antibiotics, respiratory therapy Neb, Steroids, Antibiotics -: Will need biopsy once respiratory status stabilized, possibly liver * . - Discharge Day Encounter end time: 10:45 Pulmonology Consult: Meds - Medications MAR Reviewed: Yes Medications: Current Medications Acetaminophen (Tylenol) 650 mg PO Q4H PRN PRN Reason: Headache/Fever/Mild Pain (1-3) Albuterol/Ipratropium (Duoneb) 3 ml NEB [id number] [facility] Last Admin: 04/23/18 10:58 Dose: 3 ml Bisacodyl (Dulcolax) 10 mg PO DAILYPRN PRN PRN Reason: Constipation Last Admin: 04/23/18 09:25 Dose: 10 mg Dextrose/Water (Dextrose 50%) 25 gm SLOW IVP PRN PRN PRN Reason: Hypoglycemia Enoxaparin Sodium (Lovenox) 40 mg SC 0900 [facility] Last Admin: 04/23/18 09:13 Dose: 40 mg Glucagon (Glucagon) 1 mg IM PRN PRN PRN Reason: Hypoglycemia HCTZ/Losartan Potassium (Hyzaar 100/25) 1 tab PO DAILY [facility] Last Admin: 04/23/18 09:25 Dose: 1 tab Levofloxacin 500 mg/ Device 100 mls @ 100 mls/hr IVPB Q24HR [facility] Last Admin: 04/22/18 20:30 Dose: 100 mls Dextrose/Water (D5w) 1,000 mls @ 0 mls/hr IV .Q0M PRN PRN Reason: Hypoglycemia Insulin Human Lispro (Humalog) 0 units SC .MILD SLIDING SCALE PRN PRN Reason: Mild Correctional Scale Last Admin: 04/23/18 11:35 Dose: 2 unit Insulin Human Lispro (Humalog) 0 units SC .BEDTIME SLIDING SC PRN PRN Reason: Bedtime Correctional Scale Methylprednisolone Sodium Succinate (Solu-Medrol) 40 mg IVP Q6HR [facility] Last Admin: 04/23/18 11:35 Dose: 40 mg Mometasone Furoate/Formoterol Fumar (Dulera 200 Mcg/5 Mcg Inhaler) 2 puff INH BID-RT [facility] Last Admin: 04/23/18 06:56 Dose: 2 puff Pantoprazole Sodium (Protonix) 40 mg PO DAILY [facility] Last Admin: 04/23/18 09:12 Dose: 40 mg Senna/Docusate Sodium (Senokot S) 2 tab PO BID PRN PRN Reason: Constipation - Allergies Allergies/Adverse Reactions: Allergies Allergy/AdvReac Type Severity Reaction Status Date / Time No Known Drug Allergies Allergy Verified 07/11/14 00:09
[2018-04-23] MEDS: Enoxaparin Sodium 40 MG/0.4 ML SYRINGE SC SCH (09:13)
[2018-04-23] MEDS: Losartan/Hydrochlorothiazide 100 mg/25 mg Tablet PO SCH (09:25)
--- NOTE | 2018-04-23 11:06 | PRG ---
DATE OF SERVICE: 04/23/2018 SUBJECTIVE: The patient is less short of breath. OBJECTIVE: VITAL SIGNS: Sats are 90% on 3 L, respirations 20, pulse 102, temperature 97, and blood pressure 114/67. CHEST: Decreased breath sounds. No wheezing. CARDIAC: Normal S1 and S2. No gallops. ABDOMEN: No mass. IMPRESSION: 1. Metastatic cancer. 2. End-stage chronic obstructive pulmonary disease. PLAN: Continue supportive care, steroids, and neb treatment. Job ID: [id number]
[2018-04-23 11:34] VITALS: BMI 22.8
[2018-04-23] MEDS: HumaLOG 300 UNITS/3 ML VIAL SC PRN ×2 (11:35→18:12)
--- NOTE | 2018-04-23 18:36 | PRG ---
DATE OF SERVICE: 04/23/2018 SUBJECTIVE: The patient is breathing much better today. He is eating better. He is with no new complaints. OBJECTIVE: VITAL SIGNS: Temperature 97.4, pulse 102, respiratory rate 17, and blood pressure 108/66. CHEST: Shows bilateral wheezes. CARDIOVASCULAR: Regular rate and rhythm. ABDOMEN: Protuberant with a massive hepatomegaly. LABORATORY DATA: Laboratory to shows a CEA of 1136. Alpha fetoprotein is normal. CA-99 is pending. ASSESSMENT: Hepatic metastasis of unknown etiology. RECOMMENDATIONS: We will try to obtain a tissue sample of the liver biopsy. Job ID: [id number]
[2018-04-24 04:54] LABS: INR-International Normal Ratio 1.2; Prothrombin Time 15.6 SEC (12.0-14.7)
--- NOTE | 2018-04-24 07:21 | PDOC.PN ---
- Subjective Encounter Start Date: 04/24/18 Encounter Start Time: 09:15 Subjective: Patient reports improvement in SOB, cough. - Objective Resuscitation Status - Order Detail: 04/21/18 19:41 Resuscitation Status Routine Resuscitation Status: FULL: Full Resuscitation MAR Reviewed: Yes Vital Signs & Weight: Vital Signs (12 hours) Temp Pulse Resp BP BP Pulse Ox 04/24/18 04:00 97.9 F 104 H 20 92/50 L 99 04/24/18 02:48 87 18 95 04/24/18 00:00 97.9 F 109 H 20 111/66 96 04/23/18 22:47 99 18 98 04/23/18 19:26 97.6 F 102 H 20 91/53 L 95 Weight Admit Weight 176 lb Weight 171 lb 8 oz I&O: 04/23/18 04/24/18 04/25/18 06:59 06:59 06:59 Intake Total 350 1200 Output Total 350 400 Balance 0 800 Result Diagrams: 04/22/18 03:46 04/22/18 03:46 Additional Labs: Accuchecks 04/24/18 04/23/18 04/23/18 05:40 20:46 16:39 POC Glucose 119 H 162 H 162 H 04/23/18 10:50 POC Glucose 153 H Phys Exam - Physical Examination Constitutional: NAD HEENT: moist MMs tight lung sounds, not much wheezing this AM, breathing easily at rest Cardiovascular: RRR Gastrointestinal: soft, positive bowel sounds liver edge enlarged and hard Neurological: non-focal, moves all 4 limbs Psychiatric: normal affect, A&O x 3 Dx/Plan (1) Acute and chronic respiratory failure ([id number]) Code(s): J96.20 - ACUTE AND CHR RESP FAILURE, UNSP W HYPOXIA OR HYPERCAPNIA Status: Acute Qualifiers: (2) COPD exacerbation Code(s): J44.1 - CHRONIC OBSTRUCTIVE PULMONARY DISEASE W (ACUTE) EXACERBATION Status: Acute (3) Lung mass Code(s): R91.8 - OTHER NONSPECIFIC ABNORMAL FINDING OF LUNG FIELD Status: Acute Comment: cancer vs. pneumonia (4) Liver metastases Code(s): C78.7 - SECONDARY MALIG NEOPLASM OF LIVER AND INTRAHEPATIC BILE DUCT Status: Acute Comment: seen on CT, consult GI, may need biopsy (5) Lumbar compression fracture Code(s): S32.000A - WEDGE COMPRESSION FRACTURE OF UNSP LUMBAR VERTEBRA, INIT Status: Acute Comment: will check MRI to make sure no metastatic disease to spine (6) Lower extremity edema Code(s): R60.0 - LOCALIZED EDEMA Status: Acute Comment: Does not appear to be due to CHF and not resolved with diuretics as outpatient. Will try compression wraps. - Plan cont current plan of care, continue antibiotics, PT/OT Will add prophylactic Lovenox after all biopsies complete. * . - Discharge Day Encounter end time: 09:30
[2018-04-24] MEDS: Mometasone/Formoterol 120 PUFF INHALER INH SCH ×2 (08:35→20:14)
[2018-04-24] MEDS: Losartan/Hydrochlorothiazide 100 mg/25 mg Tablet PO SCH (09:17)
--- NOTE | 2018-04-24 11:07 | PRG ---
DATE OF SERVICE: 04/24/2018 SUBJECTIVE: He is going to go for liver biopsy today. He is less short of breath. OBJECTIVE: VITAL SIGNS: His sats are 95 on 2 L, temp is 97, pulse 98, blood pressure 100/61. CHEST: Decreased breath sounds. No wheezing. CARDIAC: Normal S1, S2. ABDOMEN: No masses. IMPRESSION: 1. Severe end-stage chronic obstructive pulmonary disease. 2. Metastatic cancer. PLAN: Continue steroids, antibiotics. Await biopsy. Job ID: [id number]
[2018-04-24] MEDS ORDERED: Sodium Bicarbonate 2.5 MEQ/5 ML VIAL ONE (12:59)
[2018-04-24] MEDS ORDERED: Midazolam HCl 2 mg/2 ml Vial ONE (12:59)
[2018-04-24] MEDS ORDERED: Fentanyl 100 MCG/2 ML VIAL ONE (13:00)
[2018-04-24] MEDS ORDERED: Iopamidol 370 76% 100 ML VIAL ONE (13:15)
--- NOTE | 2018-04-24 15:35 | CT ---
CT ABDOMEN AND PELVIS WITH AND WITHOUT CONTRAST: Date: 04-24-18 History: Recent CT examination of the chest demonstrated findings concerning for hepatic metastatic d isease. Technique: Axial CT imaging obtained at 5 mm intervals through the abdomen with oral contrast, with a nd without IV contrast. Axial CT imaging obtained through the pelvis with IV and oral contrast. Coron al reformatted imaging obtained. FINDINGS: The imaged lung bases demonstrate emphysematous change. Within the inferior aspect of the left upper lobe there are two pulmonary nodules, the larger measuring 1 cm on axial image 15. There are three 3- 4 subcentimeter pulmonary nodules within the left lower lobe measuring up to 5 mm. There is a periphe ral nonspecific focal area of consolidative change within the right lower lobe on Image 9 and there i s a subcentimeter right lower lobe pulmonary nodule on Image 13. There is a pleural based nodular den sity within the right middle lobe posteriorly on Image 8 measuring 1.1 cm and there is an incompletel y imaged focal area of consolidative change within the right middle lobe inferiorly on Image 8. No free intraperitoneal air or fluid. The hepatic parenchyma is nearly completely replaced within numeral hypodense, probably necrotic hepa tic metastatic lesions. There is resultant diffuse enlargement of the liver. There is mass effect with narrowing of the intrahepatic portal system on the right and there is mass effect with narrowing of the hepatic venous structures throughout the liver including the intrahepati c IVC. The spleen, pancrease adrenal glands, and kidneys demonstrate no acute findings. There is a focal area of circumferential wall thickening involving the sigmoid colon, best seen on ax ial image 111, highly concerning for a colon cancer, measuring at least 4 cm in length. There is maryan cent region mesenteric lymphadenopathy, including a soft tissue mass on image 112 measuring 2.6 cm an d a smaller mesenteric mass measuring 1.5 cm on image 112, most consistent with metastatic lymphadeno melly. There is no evidence for bowel obstruction. There are soft tissue nodules within the ventral aspect of the omentum within the right upper quadran t/mid right abdomen, evidence of peritoneal carcinomatosis, including a mass measuring up to 2.8 cm t ransverse dimension on axial image 107. There is a soft tissue mass at the level of the umbilicus suggesting a peritoneal deposit or metastat ic node on Image 116 measuring 1.9 cm. There is a retroaortic left renal vein. Vascular structures of the abdomen/pelvis appear patent. Review of the osseous structures demonstrates diffuse osteopenia. There is multilevel lower lumbar sp ine facet hypertrophic change. There is a questionable ill-defined sclerotic lesion within the L1 vertebral body which could represe nt a metastatic lesion or an atypical hemangioma. IMPRESSION: 1. Focal area of circumferential wall thickening involving sigmoid colon highly concerning for colon cancer. Regional lymphadenopathy, omental deposits, hepatic lesions, periumbilical lesion, and bilate ral pulmonary parenchymal nodules all concerning for widespread metastatic disease. Questionable L1 m etastatic lesion which can be better evaluation via Bone Scan. 2. The results of this study were discussed with Dr. David Rogers at 1:30 p.m. 04-24-17. Code CR. POS: [facility]
--- NOTE | 2018-04-24 15:36 | ULT ---
ULTRASOUND WITH DOPPLER DUPLEX VENOUS LOWER EXTREMITIES BILATERAL: HISTORY: 67-year-old male with bilateral lower extremity edema. TECHNIQUE: Color flow Doppler, spectral waveform analysis of pulsed Doppler, and humphries-scale imaging with beth emmanuel and augmentation, were used to evaluate the bilateral common femoral, femoral, popliteal, lna ior tibial, and superficial femoral, veins; and the proximal portions of the profunda femoral and gre ater saphenous, veins. FINDINGS: There is normal compressibility, demonstration of blood flow by color Doppler and pulsed Doppler, and response to augmentation, in all interrogated veins. The right and left common femoral veins are dilated, with calibers of 2.5 and 2.1 cm, respectively. S luggish blood flow is demonstrated throughout all major deep veins. Edema is visualized in the superf icial soft tissues of the bilateral legs. IMPRESSION: 1. No deep vein thrombosis in the bilateral lower extremities. 2. Bilateral leg soft tissue edema. 3. Dilated bilateral common femoral veins. 4. Sluggish blood flow throughout the deep veins of the bilateral lower extremities. terrence POS: [facility]
[2018-04-24] MEDS ORDERED: GoLYTELY 4,000 ml Bottle PO SCH (18:00)
[2018-04-24] MEDS: HumaLOG 300 UNITS/3 ML VIAL SC PRN (18:17)
[2018-04-25] MEDS: Mometasone/Formoterol 120 PUFF INHALER INH SCH ×2 (07:10→19:03)
--- NOTE | 2018-04-25 08:59 | PDOC.PN ---
- Subjective Encounter Start Date: 04/25/18 Encounter Start Time: 10:45 Subjective: Patient just back from colonoscopy. Breathing improved from admission, but -: still SOB. Mild cough. - Objective Resuscitation Status - Order Detail: 04/21/18 19:41 Resuscitation Status Routine Resuscitation Status: FULL: Full Resuscitation MAR Reviewed: Yes Vital Signs & Weight: Vital Signs (12 hours) Temp Pulse Resp BP Pulse Ox 04/25/18 06:56 98 04/25/18 06:54 98 20 97 04/25/18 04:21 97.4 F L 97 20 95/53 L 97 04/25/18 03:00 100 20 99 04/24/18 22:02 100 16 98 Weight Admit Weight 176 lb Weight 172 lb 12.8 oz I&O: 04/24/18 04/25/18 04/26/18 06:59 06:59 06:59 Intake Total 1200 4720 Output Total 400 3400 Balance 800 1320 Result Diagrams: 04/22/18 03:46 04/22/18 03:46 Additional Labs: Accuchecks 04/25/18 04/24/18 04/24/18 05:20 20:24 16:53 POC Glucose 133 H 229 H 244 H 04/24/18 10:36 POC Glucose 198 H Phys Exam - Physical Examination Constitutional: NAD HEENT: moist MMs Respiratory: no wheezing, no rales, no rhonchi decreased breath sounds bilaterally, mild increased WOB Cardiovascular: RRR, no significant murmur Gastrointestinal: soft, positive bowel sounds enlarged hard liver edge Musculoskeletal: edema present Neurological: non-focal, moves all 4 limbs Psychiatric: normal affect, A&O x 3 Dx/Plan (1) Acute and chronic respiratory failure ([id number]) Code(s): J96.20 - ACUTE AND CHR RESP FAILURE, UNSP W HYPOXIA OR HYPERCAPNIA Status: Acute Qualifiers: (2) COPD exacerbation Code(s): J44.1 - CHRONIC OBSTRUCTIVE PULMONARY DISEASE W (ACUTE) EXACERBATION Status: Acute (3) Lung mass Code(s): R91.8 - OTHER NONSPECIFIC ABNORMAL FINDING OF LUNG FIELD Status: Acute Comment: cancer vs. pneumonia (4) Liver metastases Code(s): C78.7 - SECONDARY MALIG NEOPLASM OF LIVER AND INTRAHEPATIC BILE DUCT Status: Acute Comment: seen on CT, consult GI, may need biopsy (5) Lumbar compression fracture Code(s): S32.000A - WEDGE COMPRESSION FRACTURE OF UNSP LUMBAR VERTEBRA, INIT Status: Acute Comment: will check MRI to make sure no metastatic disease to spine (6) Lower extremity edema Code(s): R60.0 - LOCALIZED EDEMA Status: Acute Comment: Does not appear to be due to CHF and not resolved with diuretics as outpatient. Will try compression wraps. - Plan cont current plan of care, continue antibiotics, PT/OT, respiratory therapy CT concerning for colon cancer of the sigmoid -: Colonoscopy revealed circumfrential rectosigmoid mass, biopsy taken -: Oncology consultation * . - Discharge Day Encounter end time: 11:00
[2018-04-25] MEDS: Losartan/Hydrochlorothiazide 100 mg/25 mg Tablet PO SCH (12:04)
--- NOTE | 2018-04-25 12:50 | OP ---
DATE OF PROCEDURE: 04/25/2018 PREOPERATIVE DIAGNOSES: 1. Metastatic disease to the liver. 2. Abnormal CT scan indicating sigmoid mass. DESCRIPTION OF PROCEDURE: After informed consent was obtained, the patient was placed in the left lateral decubitus position. Anesthesia was administered per the Anesthesia Department. Forward-viewing colonoscope was inserted in the rectum. After perianal inspection, rectal exam was normal and this was passed to the ascending colon, but not into the cecal cap. Diffuse melanosis coli was noted. Multiple polyps were seen throughout the colon. None of these were removed. In the distal sigmoid at the rectosigmoid junction approximately 20 cm from the anal verge, a large circumferential mass was noted and biopsies were obtained. This mass allowed passage of the colonoscope without obstruction. ASSESSMENT: 1. Circumferential rectosigmoid mass - status post biopsy; likely malignant. 2. Multiple colon polyps - not removed. 3. Melanosis coli. 4. Left-sided diverticulosis coli. 5. Otherwise, normal poorly prepped incomplete colonoscopy. RECOMMENDATIONS: 1. Await histopathology. 2. Oncology opinion. Job ID: [id number]
[2018-04-25] MEDS ORDERED: PROPOFOL 200 MG/20 ML VIAL ONE (14:19)
--- NOTE | 2018-04-26 00:44 | CON ---
DATE OF CONSULTATION: REASON FOR CONSULT: Colon mass. HISTORY OF PRESENT ILLNESS: Mr. Oliver is a pleasant 67-year-old male with a history of COPD. Over the last several weeks, he has become increasingly short of breath with lack of appetite, constipation, and weight loss. He presented to the emergency room for evaluation. Chest xray showed a possible lesion in his right lung. He then underwent a chest CT, which showed a 3.5 cm soft tissue density in the right lung abutting the pleural space. There was another mass measuring 3.8 cm. There was a 1.3 cm nodular density in the right middle lobe, one in the posterior right middle lobe and a 1 cm nodular density in the posterior mid right lower lobe. In the left lung, there were numerous pulmonary nodules identified. The liver showed diffuse metastatic disease. He underwent an abdominal and pelvis CT. The liver parenchyma was nearly completely replaced with metastatic necrotic lesions. There was a wall thickening noted in the sigmoid colon. There were multiple soft tissue nodules suggestive of peritoneal carcinomatosis. There was a possible L1 metastatic lesion. The patient underwent a colonoscopy today by Dr. Rogers. A circumferential rectosigmoid mass was found approximately 20 cm from the anal verge. There were multiple colon polyps. The mass was biopsied and pathology is pending. We were asked to discuss the findings with the patient. He is sitting on the side of the bed. Denies any shortness of breath. He has an 80 pack-year history of smoking, quit in 2012. Denies any melena, hematochezia, or hemoptysis. He does have bilateral lower extremity edema, which he states is intermittent, but has been present for the past three months. A venous ultrasound showed no DVT. PAST MEDICAL HISTORY: 1. COPD. 2. Hypertension. 3. Possible congestive heart failure. 4. Diabetes. PAST SURGICAL HISTORY: Bilateral thoracentesis in 2013. ALLERGIES: NO KNOWN DRUG ALLERGIES. HOME MEDICATIONS: 1. Albuterol p.r.n. 2. Lipitor daily. 3. Lasix daily. 4. Glucophage b.i.d. 5. Protonix daily. 6. Prednisone daily. 7. Spironolactone daily. 8. Norvasc daily. FAMILY HISTORY: Mother had gastric cancer. SOCIAL HISTORY: . 10-[id number]-wtvg history of smoking, quit five years ago. No alcohol or illicit drug use. REVIEW OF SYSTEMS: A 10-point review of systems is negative except for noted in HPI. PHYSICAL EXAMINATION: VITAL SIGNS: Temperature is 96.3, pulse is 103, respiratory rate 18, blood pressure is 154/61, he is 98% on 3 L. GENERAL: Chronically ill-appearing male, in no acute distress. HEENT: Normocephalic and atraumatic. Pupils are equal and reactive to light. NECK: Supple. CV: Regular rate and rhythm. LUNGS: Diminished throughout. ABDOMEN: Firm. He has palpable liver approximately 6 cm below the right costal margin. SKIN: There is no rash. EXTREMITIES: He has 2+ bilateral lower extremity edema. HEMATOLOGIC: No petechiae or purpura. NEUROLOGIC: Nonfocal. PSYCHIATRIC: The patient is alert and oriented and appropriate. PERTINENT LABORATORY DATA AND X-RAYS: WBC is 14.9, hemoglobin 12.9, hematocrit 41.3, platelet count 431,000. Sodium was 136, potassium 4.4, chloride 94, CO2 is 27, BUN is 15, creatinine 0.91, calcium is 9.1, total bilirubin is 1.9, AST 55, ALT 39, alkaline phosphatase is 436, creatine kinase is 149. Serum total protein 6.9, albumin 3.2, globulin 3.3, AFP is 4.1, CEA is 1136. CA 19-9 is 1696. Radiology per HPI. ASSESSMENT: 1. Circumferential sigmoid mass. 2. Metastatic disease involving the lung, liver, peritoneum, and L1. DISCUSSION: The patient has stage IV metastatic disease, likely colon primary. Await pathology for final diagnosis and recommendations. He understands that treatment is palliative and wishes to pursue at this time. Mediport placement will be needed for chemotherapy. Diagnosis was discussed with both patient and at bedside. Case discussed with Dr. Madden. Thank you for the consult. We will follow his hospital course. Job ID: [id number] [facility]
[2018-04-26] MEDS: Mometasone/Formoterol 120 PUFF INHALER INH SCH ×2 (06:52→18:50)
[2018-04-26] MEDS: Losartan/Hydrochlorothiazide 100 mg/25 mg Tablet PO SCH (09:24)
--- NOTE | 2018-04-26 11:27 | PRG ---
DATE OF SERVICE: 04/26/2018 SUBJECTIVE: This morning, he is better, less short of breath, status post liver biopsy. OBJECTIVE: VITAL SIGNS: Saturations are 94% on 3 L, pulse 104, temperature 97, and blood pressure 104/57. CHEST: Decreased breath sounds. Prolonged expiration. CARDIAC: Normal S1 and S2. No gallops. ABDOMEN: No masses. IMPRESSION: 1. Metastatic carcinoma. 2. Status post endoscopy. 3. End-stage chronic obstructive pulmonary disease. PLAN: Continue supportive care and PT. Switch over to p.o. prednisone. Job ID: [id number]
--- NOTE | 2018-04-26 12:28 | PRG ---
DATE OF SERVICE: 04/26/2018 SUBJECTIVE: The patient is doing well without new complaints. OBJECTIVE: VITAL SIGNS: Temperature is 97.0, pulse 104, respiratory rate 18, blood pressure 104/57. CHEST: Shows bilateral wheezes. CARDIOVASCULAR: Regular rate and rhythm. ABDOMEN: Soft, protuberant, nontender. Histopathology confirmed that the rectosigmoid mass was an adenocarcinoma. ASSESSMENT: Adenocarcinoma of the rectosigmoid junction, metastatic to the liver. RECOMMENDATIONS: 1. Continue management per Oncology. 2. We will sign off. Job ID: [id number]
--- NOTE | 2018-04-26 16:39 | PDOC.PN ---
- Subjective Encounter Start Date: 04/26/18 Encounter Start Time: 15:10 Sitting up, leaning over his bedside table. Has not walked today. Eating "ok" . Feels his breathing is "a little better." Tells me "they decided against the mediport and we are going to do a pill for a month and see how it goes." Denies headache or back pain. - Objective Resuscitation Status - Order Detail: 04/21/18 19:41 Resuscitation Status Routine Resuscitation Status: FULL: Full Resuscitation Vital Signs & Weight: Vital Signs (12 hours) Temp Pulse Resp BP Pulse Ox 04/26/18 15:27 97.6 F 105 H 17 99/56 L 95 04/26/18 14:06 104 H 20 96 04/26/18 12:00 97.2 F L 98 18 110/58 L 97 04/26/18 10:25 104 H 18 94 L 04/26/18 07:57 98 04/26/18 07:40 97.0 F L 95 19 104/57 L 98 04/26/18 06:53 97 04/26/18 06:52 100 16 97 04/26/18 06:49 100 16 97 Weight Admit Weight 176 lb Weight 172 lb 12.8 oz I&O: 04/25/18 04/26/18 04/27/18 06:59 06:59 06:59 Intake Total 4720 1800 Output Total 3400 1100 Balance 1320 700 Result Diagrams: 04/22/18 03:46 04/22/18 03:46 Additional Labs: Accuchecks 04/26/18 04/26/18 04/25/18 10:33 05:37 20:47 POC Glucose 156 H 133 H 199 H 04/25/18 16:32 POC Glucose 170 H Phys Exam - Physical Examination Constitutional: NAD Exophthalmus present, conjunctival injection present Neck: no nodes, supple, full ROM Respiratory: wheezing present Cardiovascular: RRR Mild distention present Musculoskeletal: edema present Neurological: non-focal, moves all 4 limbs Psychiatric: normal affect, A&O x 3 Skin: no rash Dx/Plan (1) Adenocarcinoma Code(s): C80.1 - MALIGNANT (PRIMARY) NEOPLASM, UNSPECIFIED Status: Acute Comment: Stage IV metastatic adenocarcinoma rectosigmoid. Appreciate oncology input. Plan for oral palliative chemotherapy at this time, mediport deferred. Appointment with oncology, Dr. Madden, 05/03/18 at 9:15 AM in office. (2) Liver metastases Code(s): C78.7 - SECONDARY MALIG NEOPLASM OF LIVER AND INTRAHEPATIC BILE DUCT Status: Acute (3) Lumbar compression fracture Code(s): S32.000A - WEDGE COMPRESSION FRACTURE OF UNSP LUMBAR VERTEBRA, INIT Status: Acute Comment: L1 compression fracture present (4) COPD exacerbation Code(s): J44.1 - CHRONIC OBSTRUCTIVE PULMONARY DISEASE W (ACUTE) EXACERBATION Status: Acute Comment: Uses oxygen at home prior to admission. Transition to oral prednisone. Continue nebs. Deconditioned, has not been out of bed much during hospital stay. Completing 5 days levaquin. (5) Type 2 diabetes mellitus with insulin therapy Code(s): E11.9 - TYPE 2 DIABETES MELLITUS WITHOUT COMPLICATIONS; Z79.4 - USP (CURRENT) USE OF INSULIN Status: Acute Comment: Blood glucose control fair on current regimen, steroid dose tapering as well. (6) HTN (hypertension) Code(s): I10 - ESSENTIAL (PRIMARY) HYPERTENSION Status: Chronic Qualifiers: Hypertension type: essential hypertension Qualified Code(s): I10 - Essential (primary) hypertension Comment: Controlled (7) Physical deconditioning Code(s): R53.81 - OTHER MALAISE Status: Acute Comment: Mobilize, needs to build endurance, seen by PT 04/25 - Plan cont current plan of care, continue antibiotics, PT/OT, social worker * Please see plan specifics above. * Dicussed discharge timeline/goals with patient - anticipate perhaps 48 hours? No additional inpatient orders/tests/biopsies/surgeries noted this afternoon on review. Needs to build endurance. He has home oxygen, presently at 3L ( usually 2 or 3). Home health with PT. Patient's goal is to go home, not to facility. * High risk based on metastatic, severe disease and baseline comorbidities.
[2018-04-27 06:42] LABS: %Neutrophils 86.5 % (42.0-75.0); Hemoglobin 12.7 g/dL (14.0-18.0); Mean Corpuscular HGB CONC 29.7 g/dL (32.0-36.0); Mean Corpuscular Hemoglobin 26.9 pg (27.0-31.0); Mean Corpuscular Volume 90.6 fL (78.0-98.0); Mean Platelet Volume 7.8 fL (7.4-10.4); Platelet Count 314 thou/uL (130-400); RBC Distribution Width 16.6 % (11.5-14.5); Red Blood Cell (RBC) Count 4.72 mill/uL (4.70-6.10); White Blood Cell (WBC) Count 15.5 thou/uL (4.8-10.8)
[2018-04-27 06:43] LABS: #Lymphocytes 0.8 thou/uL (1.20-3.40); #Monocytes 1.3 thou/uL (0.11-0.59); #Neutrophils 13.4 thou/uL (1.40-6.50); %Eosinophils 0.2 % (0.0-10.0); %Lymphocytes 5.3 % (21.0-51.0); %Monocytes 8.1 % (0.0-10.0)
[2018-04-27] MEDS: Mometasone/Formoterol 120 PUFF INHALER INH SCH ×2 (06:46→18:59)
[2018-04-27 06:47] LABS: Anion Gap 19 mmol/L (10-20); BUN (Urea Nitrogen) 38 mg/dL (8.4-25.7); Calc. Creatinine Clearance 39 mL/min (70-130); Calcium 8.9 mg/dL (7.8-10.44); Carbon Dioxide 25 mmol/L (23-31); Chloride 93 mmol/L (98-107); Estimated GFR-MDRD 38; Glucose 73 mg/dL (80-115); Magnesium 2.4 mg/dL (1.6-2.6); Potassium 4.9 mmol/L (3.5-5.1); Sodium 132 mmol/L (136-145)
[2018-04-27] MEDS ORDERED: Albuterol Sulfate 1.25 MG/3 ML NEB NEB PRN (09:07)
--- NOTE | 2018-04-27 09:14 | PDOC.PN ---
- Subjective Encounter Start Date: 04/27/18 (f/u metastatic cancer) Encounter Start Time: 09:11 Subjective: Pt today reports increase work of breathing at rest. Denies any -: chest or abd pain. Denies any other new symptoms - Objective Resuscitation Status - Order Detail: 04/21/18 19:41 Resuscitation Status Routine Resuscitation Status: FULL: Full Resuscitation Vital Signs & Weight: Vital Signs (12 hours) Temp Pulse Resp BP Pulse Ox 04/27/18 08:00 94 L 04/27/18 07:32 97.9 F 113 H 18 93/54 L 94 L 04/27/18 06:49 110 H 20 98 04/27/18 06:46 110 H 22 H 98 04/27/18 03:10 97.9 F 111 H 18 129/59 L 95 04/27/18 02:32 100 16 97 04/26/18 22:18 107 H 16 98 Weight Admit Weight 176 lb Weight 179 lb 9.6 oz I&O: 04/26/18 04/27/18 04/28/18 06:59 06:59 06:59 Intake Total 1800 1440 Output Total 1100 800 Balance 700 640 Result Diagrams: 04/27/18 05:30 04/27/18 05:30 Additional Labs: Accuchecks 04/26/18 04/26/18 04/26/18 20:58 16:02 10:33 POC Glucose 139 H 138 H 156 H 04/26/18 05:37 POC Glucose 133 H EKG Reviewed by me: Yes (sinux tachy 110's) Phys Exam - Physical Examination Constitutional: NAD Respiratory: no rales, no rhonchi chest is tight with wheezing, decreased air movement, Cardiovascular: RRR, no significant murmur Gastrointestinal: soft, positive bowel sounds 2+ pitting edema bilateral LE Deviation from normal: good eye contact, alert and answers questions appropriately Dx/Plan (1) NASIR (acute kidney injury) Code(s): N17.9 - ACUTE KIDNEY FAILURE, UNSPECIFIED Status: Acute (2) Hypotension Status: Acute (3) Adenocarcinoma Code(s): C80.1 - MALIGNANT (PRIMARY) NEOPLASM, UNSPECIFIED Status: Acute (4) Liver metastases Code(s): C78.7 - SECONDARY MALIG NEOPLASM OF LIVER AND INTRAHEPATIC BILE DUCT Status: Acute (5) Lumbar compression fracture Code(s): S32.000A - WEDGE COMPRESSION FRACTURE OF UNSP LUMBAR VERTEBRA, INIT Status: Acute (6) Physical deconditioning Code(s): R53.81 - OTHER MALAISE Status: Acute Comment: Mobilize, needs to build endurance, seen by PT 04/25 (7) Type 2 diabetes mellitus with insulin therapy Code(s): E11.9 - TYPE 2 DIABETES MELLITUS WITHOUT COMPLICATIONS; 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 Sheehan - Discussed with pharmacist - requested adjustment of levaquin based on renal function and for pharmacy to follow along with us for all meds * Hypotension - address with d/c anti-htn med and starting IVF iwth gentle bolus. * Metastatic disease - plan for outpatient f/u with Oncology * Worsening breathing status - being followed by Dr. Cazares * Added brovana * Added albuterol q2h prn to alternate with scheduled duonebs if needed * XR * DM - on sliding scale insulin only - monitor PO intake - will change IVF to dextrose containing due to blood sugar in the 70's and pt with difficulty breathing now * pt/ot as able * discussed current problems and how they are being addressed with patient - no questions at end of evaluation * pt at high risk in current condition * dvt prophy - heparin added * gi prophy - not indicated * code status full * pt at high risk in current condition based on metastatic disease, advanced COPD and other co-morbidities
[2018-04-27] MEDS ORDERED: Sodium Chloride 0.9% 250 ML IV SCH (09:15)
[2018-04-27] MEDS ORDERED: Sodium Chloride 0.9% 1,000 ML IV SCH (09:15)
[2018-04-27] MEDS ORDERED: Dextrose 5 % And 0.9 % NaCl 1,000 ML IV SCH (09:30)
[2018-04-27] MEDS ORDERED: LEVOFLOXACIN IVPB SCH (09:30)
[2018-04-27] MEDS: predniSONE 20 MG TAB PO SCH (09:35)
[2018-04-27 11:34] LABS: Osmolality, Urine 317 mOsm/kg (300-900)
[2018-04-27 11:36] LABS: Bilirubin Negative (Negative); Blood, Urine Negative (Negative); Clarity CLEAR (Clear); Glucose, Urine (Dipstick) Negative (Negative); Leukocyte Negative (Negative); Nitrite Negative (Negative); Protein, Urine (Dipstick) Negative (Neg-Trace); Specific Gravity, Urine 1.011 (1.002-1.036); Urobilinogen 0.2 mg/dL (0.2-1.0)
[2018-04-27 11:41] LABS: Bacteria/HPF None Seen HPF (None Seen); Hyaline Casts/LPF 0-3 HYALINE CAST LPF (0-3 Hyaline); Pathc Cast-AUWi Flag 0.29 (0-2.49); Squamous Epithelial None Seen HPF (0-3); WBC/HPF 0-3 HPF (0-3)
[2018-04-27 11:47] LABS: Sodium, Urine 47 mmol/L (Not Available)
--- NOTE | 2018-04-27 12:48 | RAD ---
FRONTAL RADIOGRAPH CHEST: DATE: 04/27/2018. COMPARISON: 04/21/2018. HISTORY: Worsening shortness of breath. FINDINGS: No pneumothorax is seen. There is are severe emphysematous changes noted throughout both lungs with associated pulmonary hyperinflation. Increased linear interstitial density in both lung bases noted. Asymmetric linear density in the lateral aspect of right lung base present. IMPRESSION: Findings suggesting severe emphysema. Mild asymmetric increased linear density in the right base may signify volume loss, scar, or mild infiltrate. No lobar consolidation or alveolar edema. No signif icant interval change. POS: [facility]
--- NOTE | 2018-04-27 13:09 | ULT ---
RENAL ULTRASOUND: INDICATION: Acute kidney insufficiency. FINDINGS: The right kidney is imaged and measures approximately 11 cm in length. There is no hydronephrosis. Cortical echogenicity is preserved. The left kidney is not identified by ultrasound. Urinary bladder is not imaged. The liver is enlarged and very heterogeneous. The findings suggest diffuse liver metastasis. This c orresponds to a recent CT abdomen. IMPRESSION: 1. The right kidney is imaged and appears unremarkable. The left kidney was not identified by ultra sound. CT from 04/24/2018 showed unremarkable bilateral kidneys with equal function. 2. Evidence of diffuse liver metastasis again noted. POS: [facility]
--- NOTE | 2018-04-27 13:25 | PRG ---
DATE OF SERVICE: 04/27/2018 SUBJECTIVE: This morning, he was having difficulty breathing. A chest x-ray was ordered, which shows no acute changes. He is supposed to have a large bullous in his right lung. OBJECTIVE: VITAL SIGNS: Saturations are 97% on 3 L, respiratory rate 24, pulse 113, and blood pressure 93/54. CHEST: Decreased breath sounds. No obvious wheezing or crackles. CARDIAC: Normal S1 and S2. No gallops. ABDOMEN: No masses. LABORATORY DATA: Liver biopsy shows adenocarcinoma. White count 15,000. IMPRESSION: Metastatic cancer to the liver, adenocarcinoma, end-stage chronic obstructive pulmonary disease. PLAN: Primary care physician ordered Adonis to his present neb treatment. He is already on prednisone and Dulera. Await input from Oncology. Prognosis is grave. Consider palliative care's input. Job ID: [id number]
[2018-04-27] MEDS ORDERED: Heparin 5,000 UNITS/ML VIAL SC SCH (15:00)
[2018-04-27] MEDS: Arformoterol 15 MCG/2 ML NEB NEB SCH (19:01)
[2018-04-27] MEDS ORDERED: Furosemide 40 MG/4 ML VIAL SLOW IVP SCH (20:45)
[2018-04-27] MEDS: Heparin 5,000 UNITS/ML VIAL SC SCH (21:39)
--- NOTE | 2018-04-28 03:23 | CON ---
DATE OF CONSULTATION: CONSULTING PHYSICIAN: Sissy Phan MD. REQUESTING PHYSICIAN: Dr. Gardenia Jones. REASON FOR CONSULTATION: 1. Acute on chronic kidney disease. Acute kidney injury, this is likely contrast nephropathy. 2. Hypervolemia. 3. Recent diagnosis of metastatic disease. PLAN: 1. Discontinue current IV fluid. 2. Gentle diuresis. 3. Further management will be dependent on the clinical course. 4. Avoid potentially nephrotoxic agents. 5. Renally dose all medications for low GFR. HISTORY: This is a 67-year-old gentleman who presented with worsening shortness of breath, poor appetite, and recent weight loss. The patient was evaluated with imaging and found to have lung mass. Further imaging studies including CT of abdomen and pelvis with contrast revealed extensive metastatic disease. The patient of note presented with creatinine within the normal range. With hospitalization, status post exposure to contrast, the patient's creatinine has gone above 2, thus need for Renal consultation. PAST MEDICAL HISTORY: Significant for COPD, hypertension, diabetes, status post bilateral thoracentesis. ALLERGIES: NO KNOWN DRUG ALLERGIES. FAMILY HISTORY: Significant for stomach ulcer in mother. SOCIAL HISTORY: Significant for many pack years, up to [id number] smoking, quit 5 years ago. No alcohol or illicit drug use. REVIEW OF SYSTEMS: As documented in the body of the history. All the other systems were reviewed and found not to be significantly related to the present illness. PHYSICAL EXAMINATION: GENERAL: The patient was found to be ill looking. VITAL SIGNS: Noted with the following vital signs; afebrile at temperature 97.3, pulse 106, respiratory rate of 18 to 23, pulse ox 97% on 3 L. HEENT: Examination unremarkable. CARDIOVASCULAR SYSTEM: First and second heart sounds were heard. RESPIRATORY SYSTEM: Clear to auscultation rales. DIGESTIVE SYSTEM: Revealed a benign abdomen. EXTREMITIES: Showed 4+ bilateral lower extremity edema. NEUROLOGIC: Alert. No lateralizing sign. LYMPHATICS: No peripheral lymphadenopathy. SUMMARY: A 67-year-old gentleman, who presented to the ER with worsening shortness of breath, diagnosed with metastatic disease and experiencing worsening renal failure, status post contrast exposure. Thank you for this consultation. We will follow with you. Job ID: [id number]
[2018-04-28] MEDS ORDERED: Furosemide 40 MG/4 ML VIAL SLOW IVP SCH (06:00)
[2018-04-28 06:04] LABS: Band 8 % (5-11); Hemoglobin 13.3 g/dL (14.0-18.0); Lymphocytes 5 % (21-51); MDiff Complete? YES; Mean Corpuscular Hemoglobin 27.2 pg (27.0-31.0); Mean Corpuscular Volume 90.7 fL (78.0-98.0); Mean Platelet Volume 7.8 fL (7.4-10.4); Monocytes 2 % (0-10); Neutrophil 83 % (42-75); Platelet Count 327 thou/uL (130-400); Platelet Morphology Comment Appears Adequate; RBC Distribution Width 17.1 % (11.5-14.5); RBC Morphology Normal; Reactive Lymphocytes 2 % (0-10); Red Blood Cell (RBC) Count 4.87 mill/uL (4.70-6.10); White Blood Cell (WBC) Count 15.7 thou/uL (4.8-10.8)
[2018-04-28 06:07] LABS: Anion Gap 20 mmol/L (10-20); BUN (Urea Nitrogen) 40 mg/dL (8.4-25.7); Calc. Creatinine Clearance 38 mL/min (70-130); Calcium 9.3 mg/dL (7.8-10.44); Carbon Dioxide 28 mmol/L (23-31); Chloride 93 mmol/L (98-107); Estimated GFR-MDRD 37; Glucose 85 mg/dL (80-115); Potassium 4.5 mmol/L (3.5-5.1); Sodium 136 mmol/L (136-145)
[2018-04-28] MEDS ORDERED: Albumin 25% 25 GM/100 ML BOT IVPB SCH (06:15)
[2018-04-28] MEDS: Mometasone/Formoterol 120 PUFF INHALER INH SCH ×2 (06:48→19:19)
[2018-04-28] MEDS: Arformoterol 15 MCG/2 ML NEB NEB SCH ×2 (06:51→19:21)
[2018-04-28 06:57] LABS: Bacteria/HPF Rare-Few HPF (None Seen); RBC/HPF 0-3 HPF (0-3); Squamous Epithelial None Seen HPF (0-3); Transitional Epithelial NONE SEEN HPF (0-3); WBC/HPF 0-3 HPF (0-3)
--- NOTE | 2018-04-28 07:42 | RAD ---
PORTABLE UPRIGHT FRONTAL CHEST RADIOGRAPH: DATE: 04/28/2018. COMPARISON: 04/27/2018. HISTORY: Possible fluid overload. FINDINGS: There are severe emphysematous changes noted bilaterally with an upper lobe predominance. No pneumot horax is evident. Heart and mediastinal contours are stable. No focal consolidation or alveolar renetta ma. No interval change. Lungs are hyperinflated consistent with air trapping. IMPRESSION: Stable appearance of the chest. POS: [facility]
[2018-04-28] MEDS: Heparin 5,000 UNITS/ML VIAL SC SCH ×2 (08:53→20:49)
[2018-04-28] MEDS: predniSONE 20 MG TAB PO SCH (08:53)
--- NOTE | 2018-04-28 09:07 | PDOC.PN ---
- Subjective Encounter Start Date: 04/28/18 (f/u hypotension) Encounter Start Time: 09:04 Subjective: Pt denies any changes - states breathing is a little better. Overnight pt -: hypotensive into the 70's systolic - started on IV albumin and -: smith cath placed - Objective Resuscitation Status - Order Detail: 04/21/18 19:41 Resuscitation Status Routine Resuscitation Status: FULL: Full Resuscitation Vital Signs & Weight: Vital Signs (12 hours) Temp Pulse Resp BP BP Pulse Ox 04/28/18 08:00 97.5 F L 113 H 19 104/56 L 96 04/28/18 06:52 99 04/28/18 06:51 107 H 20 99 04/28/18 06:48 107 H 20 99 04/28/18 05:30 92/51 L 04/28/18 04:45 72/32 L 04/28/18 04:00 98.2 F 112 H 16 83/53 L 97 04/28/18 03:43 94 L 04/27/18 23:44 94 L 04/27/18 21:40 97.3 F L 121 H 22 H 117/59 L 97 Weight Admit Weight 176 lb Weight 179 lb 9.6 oz I&O: 04/27/18 04/28/18 04/29/18 06:59 06:59 06:59 Intake Total 1440 1895 Output Total 800 1300 Balance 640 595 Result Diagrams: 04/28/18 05:28 04/28/18 05:28 Additional Labs: Accuchecks 04/28/18 04/27/18 04/27/18 06:02 21:14 16:43 POC Glucose 90 166 H 156 H 04/27/18 04/27/18 10:41 06:00 POC Glucose 106 100 EKG Reviewed by me: Yes (tele sinus 110's) Phys Exam - Physical Examination Constitutional: NAD Pt leaning forward breathing distant breath sounds, no audible wheezing distant heart sounds, no significant murmur Gastrointestinal: soft, positive bowel sounds 3+ pitting edema bilateral in LE Skin: no rash Dx/Plan (1) NASIR (acute kidney injury) Code(s): N17.9 - ACUTE KIDNEY FAILURE, UNSPECIFIED Status: Acute (2) Hypotension Status: Acute (3) Adenocarcinoma Code(s): C80.1 - MALIGNANT (PRIMARY) NEOPLASM, UNSPECIFIED Status: Acute (4) Liver metastases Code(s): C78.7 - SECONDARY MALIG NEOPLASM OF LIVER AND INTRAHEPATIC BILE DUCT Status: Acute (5) Lumbar compression fracture Code(s): S32.000A - WEDGE COMPRESSION FRACTURE OF UNSP LUMBAR VERTEBRA, INIT Status: Acute (6) Physical deconditioning Code(s): R53.81 - OTHER MALAISE Status: Acute (7) Type 2 diabetes mellitus with insulin therapy Code(s): E11.9 - TYPE 2 DIABETES MELLITUS WITHOUT COMPLICATIONS; Z79.4 - RESIDENTIAL (CURRENT) USE OF INSULIN Status: Acute (8) Acute and chronic respiratory failure ([id number]) Code(s): J96.20 - ACUTE AND CHR RESP FAILURE, UNSP W HYPOXIA OR HYPERCAPNIA Status: Acute Qualifiers: (9) COPD exacerbation Code(s): J44.1 - CHRONIC OBSTRUCTIVE PULMONARY DISEASE W (ACUTE) EXACERBATION Status: Acute - Plan * * appreciate Nephrology consult - diuresis as blood pressure will tolerate * Hypotension - continue albumin infusions and monitor, track UOP * Severe COPD - continue current meds - on steroids, antibiotics, nebs, oxygen * metastatic disease - discussed with patient that there are many big things occurring with his body - he did not wish to discuss this further. He agreed that I may speak with his . Discussed concerns that are going on and that pt's body may be at end of life. She demonstrates understanding of this, states they both have crissy in God and it is His will. Pt does not desire any changes in care. Pt's agrees and will be surrogate decisoin maker, and will continue to present situation and options - as condition changes. No change to code status. Will add pain meds for prn use, liberalize diet due to poor PO intake and add supplements. * DM - on sliding scale insulin only - continue * pt/ot as able * pt at high risk in current condition * dvt prophy - heparin * gi prophy - not indicated * code status full * pt at high risk in current condition based on metastatic disease, advanced COPD and other co-morbidities.
[2018-04-28] MEDS ORDERED: Fentanyl 100 MCG/2 ML VIAL SLOW IVP PRN (09:14)
[2018-04-28] MEDS ORDERED: HYDROcodone/Acetaminophen 5/325 mg Tablet PO PRN (09:14)
[2018-04-28] MEDS: Albumin 25% 25 GM/100 ML BOT IVPB SCH ×2 (12:14→17:49)
--- NOTE | 2018-04-28 12:41 | PRG ---
DATE OF SERVICE: 04/28/2018 SUBJECTIVE: Shawn Oliver is doing better. He is less short of breath. OBJECTIVE: VITAL SIGNS: Sats 100% on 3 L, respiratory rate 14, temperature 97, and blood pressure 104/56. CHEST: Decreased breath sounds. No wheezing. CARDIAC: Normal S1 and S2. No gallops. ABDOMEN: No masses. IMPRESSION: 1. End-stage chronic obstructive pulmonary disease. 2. Metastatic cancer. 3. Renal failure. PLAN: Pulmonary has nothing additional much to offer at this stage. He can be discharged home. Follow up with the Oncology on outpatient basis. His x-ray shows no acute infiltrates. Job ID: [id number]
[2018-04-28] MEDS: Furosemide 40 MG/4 ML VIAL SLOW IVP SCH (15:04)
--- NOTE | 2018-04-28 23:07 | PRG ---
DATE OF SERVICE: SUBJECTIVE: The patient noted with the following vital signs. OBJECTIVE: VITAL SIGNS: Afebrile, temperature 97.4, pulse 109, respiratory rate of 20, O2 saturation 98%, blood pressure 109/57. HEENT: Unremarkable. CARDIOVASCULAR SYSTEM: First and second heart sounds were heard. RESPIRATORY SYSTEM: Clear to auscultation. DIGESTIVE SYSTEM: Reveal somewhat distended abdomen. EXTREMITIES: Showed 4+ lower extremity edema. SKIN: No new gross rash. LYMPHATICS: No peripheral lymphadenopathy. IMPRESSION: 1. Advanced metastatic disease. 2. Acute on chronic kidney disease. 3. Peripheral edema. PLAN: 1. Continue diuresis. 2. Further management will be dependent on the clinical course. The condition of the patient is guarded. Job ID: [id number]
[2018-04-29] MEDS: Furosemide 40 MG/4 ML VIAL SLOW IVP SCH ×2 (05:38→15:00)
[2018-04-29 06:07] LABS: Anion Gap 25 mmol/L (10-20); Calc. Creatinine Clearance 42 mL/min (70-130); Calcium 9.3 mg/dL (7.8-10.44); Carbon Dioxide 21 mmol/L (23-31); Chloride 94 mmol/L (98-107); Estimated GFR-MDRD 42; Glucose 85 mg/dL (80-115); Sodium 135 mmol/L (136-145)
[2018-04-29 06:10] LABS: BUN (Urea Nitrogen) 40 mg/dL (8.4-25.7)
[2018-04-29] MEDS: Arformoterol 15 MCG/2 ML NEB NEB SCH (07:04)
[2018-04-29] MEDS: Mometasone/Formoterol 120 PUFF INHALER INH SCH (07:04)
[2018-04-29 08:10] LABS: Hemoglobin 11.6 g/dL (14.0-18.0); Mean Corpuscular HGB CONC 30.3 g/dL (32.0-36.0); Mean Corpuscular Hemoglobin 26.9 pg (27.0-31.0); Mean Corpuscular Volume 88.8 fL (78.0-98.0); Mean Platelet Volume 8.5 fL (7.4-10.4); Platelet Count 265 thou/uL (130-400); RBC Distribution Width 16.2 % (11.5-14.5); Red Blood Cell (RBC) Count 4.33 mill/uL (4.70-6.10); White Blood Cell (WBC) Count 15.8 thou/uL (4.8-10.8)
[2018-04-29 08:51] LABS: Anisocytosis SLIGHT = 6-15 cells (100X) (0-5/hpf); Band 4 % (5-11); Hypochromia SLIGHT = 6-15 cells (100X) (0-5/hpf); Lymphocytes 4 % (21-51); MDiff Complete? YES; Monocytes 3 % (0-10); Neutrophil 89 % (42-75); Platelet Morphology Comment Appears Adequate
--- NOTE | 2018-04-29 09:08 | PDOC.PN ---
- Subjective Encounter Start Date: 04/29/18 Encounter Start Time: 11:30 Subjective: Patient reports SOB and wheezing at baseling now. Back to home O2 3L -: by NC. No other complaints. Wants to go home. Didn't want Mediport. -: Plans on following up with Dr. Madden next week. - Objective Resuscitation Status - Order Detail: 04/21/18 19:41 Resuscitation Status Routine Resuscitation Status: FULL: Full Resuscitation MAR Reviewed: Yes Vital Signs & Weight: Vital Signs (12 hours) Pulse Resp BP Pulse Ox 04/29/18 07:04 120 H 22 H 04/29/18 04:25 102 H 20 104/56 L 100 04/29/18 03:57 98 04/28/18 23:30 98 Weight Admit Weight 176 lb Weight 180 lb 3.2 oz I&O: 04/28/18 04/29/18 04/30/18 06:59 06:59 06:59 Intake Total 1895 660 Output Total 1300 2450 Balance 595 -1790 Result Diagrams: 04/29/18 07:13 04/29/18 05:25 Additional Labs: Accuchecks 04/29/18 04/28/18 04/28/18 05:15 20:53 16:59 POC Glucose 117 H 173 H 215 H 04/28/18 11:29 POC Glucose 130 H Phys Exam - Physical Examination Constitutional: NAD HEENT: moist MMs Tight breath sounds bilaterally, occ wheeze, no increased WOB on 3.5L O2 Cardiovascular: RRR Gastrointestinal: non-tender, positive bowel sounds Musculoskeletal: edema present Neurological: non-focal, moves all 4 limbs Psychiatric: normal affect, A&O x 3 Dx/Plan (1) Adenocarcinoma Code(s): C80.1 - MALIGNANT (PRIMARY) NEOPLASM, UNSPECIFIED Status: Acute Comment: Stage IV metastatic adenocarcinoma rectosigmoid. Appreciate oncology input. Plan for orall palliative chemotherapy at this time, mediport deffered. Appointment with oncology, Dr. Madden, 05/03/18 at 9:15 AM in office. (2) Acute and chronic respiratory failure ([id number]) Code(s): J96.20 - ACUTE AND CHR RESP FAILURE, UNSP W HYPOXIA OR HYPERCAPNIA Status: Acute Qualifiers: Comment: Back to baseline and pulmonology signed off. (3) COPD exacerbation Code(s): J44.1 - CHRONIC OBSTRUCTIVE PULMONARY DISEASE W (ACUTE) EXACERBATION Status: Acute (4) Lung mass Code(s): R91.8 - OTHER NONSPECIFIC ABNORMAL FINDING OF LUNG FIELD Status: Acute Comment: cancer vs. pneumonia (5) Liver metastases Code(s): C78.7 - SECONDARY MALIG NEOPLASM OF LIVER AND INTRAHEPATIC BILE DUCT Status: Acute (6) Lumbar compression fracture Code(s): S32.000A - WEDGE COMPRESSION FRACTURE OF UNSP LUMBAR VERTEBRA, INIT Status: Acute (7) Lower extremity edema Code(s): R60.0 - LOCALIZED EDEMA Status: Acute Comment: Does not appear to be due to CHF and not resolved with diuretics as outpatient. Will try compression wraps. (8) NASIR (acute kidney injury) Code(s): N17.9 - ACUTE KIDNEY FAILURE, UNSPECIFIED Status: Acute Comment: Patient BNP normal. Doubt fluid overload. Will d/c diuretics. - Plan cont current plan of care, PT/OT D/C home with home health, Oncology followup. Still suspect that compressio -: wraps would help patient. Will arrange home PT. * . - Discharge Day Encounter end time: 12:00
[2018-04-29] MEDS: Heparin 5,000 UNITS/ML VIAL SC SCH (09:10)
[2018-04-29] MEDS: predniSONE 20 MG TAB PO SCH (09:10)
[2018-04-29 16:10] VITALS: BP 111/59; TEMP 97.4
--- NOTE | 2018-04-29 20:59 | PRG ---
DATE OF SERVICE: 04/29/2018 SUBJECTIVE: Shawn Oliver states that he feels that he is ready to go home. Events over the last few days have been reviewed. OBJECTIVE: Vital SIGNS: Stable. Heart rate is 105, which is near his baseline. Respiratory rate 18, oximetry is 96% on 3 L. he is chronically on 2 L at home. Blood pressure 111/59. LUNGS: Clear and distant. HEART: Regular rhythm. ABDOMEN: Soft. IMPRESSION: Steroid-dependent chronic obstructive pulmonary disease. I think it is reasonable to discharge him. I will see him in office next week. Job ID: [id number]
--- NOTE | 2018-04-30 05:34 | DIS ---
DATE OF ADMISSION: 04/21/2018 DATE OF DISCHARGE: 04/29/2018 PRIMARY CARE PHYSICIAN: Clement Fountain MD REASON FOR ADMISSION: Acute on chronic hypoxic respiratory failure and metastatic disease of the liver. DIAGNOSES AT DISCHARGE: 1. Acute on chronic respiratory failure. 2. Chronic obstructive pulmonary disease exacerbation. 3. Metastatic adenocarcinoma of the colon. 4. Lumbar compression fracture. 5. Lower extremity edema, likely venous insufficiency. 6. Acute kidney injury, secondary to diuretics. PROCEDURES: 1. Right upper quadrant ultrasound showing diffuse heterogeneous liver consistent with diffuse liver metastasis and gallbladder with sludge, thickened wall, and gallstones. 2. CT of the chest without contrast showing numerous bilateral pulmonary nodules along with larger masslike densities in the right lung consistent with possible inflammatory infiltrate versus atelectasis versus mass. 3. MRI of the lumbar spine showing superior endplate compression deformity of L1 without any evidence of metastatic process. 4. CT of the abdomen and pelvis with and without contrast showing focal area of circumferential wall thickening involving the sigmoid colon concerning for colon cancer along with regional lymphadenopathy, omental deposit, hepatic lesions, periumbilical lesion, and bilateral pulmonary parenchymal nodules. 5. Colonoscopy showing circumferential rectosigmoid mass, which was biopsied. Multiple colon polyps, melanosis coli, left-sided diverticulosis and poor prep. Pathology results showing invasive colonic adenocarcinoma, moderately differentiated. 6. Echocardiogram showing ejection fraction of 50% to 55% and no notable diastolic dysfunction, it was a poor study. CONSULTATIONS: 1. Gastroenterology, Dr. Rogers. 2. Pulmonology, Dr. Cazares. 3. Heme/Oncology, Sommer Joy NP for Fifi Madden MD. SUMMARY OF HOSPITAL COURSE: This is a 67-year-old male with a known history of severe COPD, on 3.5 L at home. He reports couple months of severe lower extremity edema, not responding to diuretics at his primary care doctor's office, and then developed 10 days of shortness of breath and cough. Also reported having some lower back pain. The patient was evaluated in the emergency room and found to be in hypoxic respiratory failure, requiring more than his home dose of oxygen due to COPD exacerbation. He was admitted to the hospital. In the ER, he was also noted to have a very large nodular hard liver and above studies were done. Pulmonology was consulted for COPD exacerbation and then Gastroenterology to further workup his cancer. The patient had MRI done also due to the compression fracture found on his back on plain x-ray and this does not show any metastatic disease to his spine. His COPD calmed down with steroids, antibiotics, and neb treatments. Once he was stable, he had a colonoscopy done which was although incomplete, did show colon cancer of the rectosigmoid which was biopsied with the above results. Heme/Oncology was consulted. They did discuss options with the patient. We talked about putting a MediPort in, but he refused it. He is going to try oral chemotherapy for palliation. On the day of discharge, the patient was back to his home level of oxygen and back to his baseline level of wheezing and coughing as well. During hospitalization, the patient was noted to have severe lower extremity edema. Brain natriuretic peptide was done, which was normal. He also had an echocardiogram done. Given the normal brain natriuretic peptide and normal echocardiogram, it was thought that his edema is most likely due to venous insufficiency, possibly also related to metastatic pressure on the veins in his pelvis. The patient was tried on some diuretics during his hospitalization, which resulted in elevation of his creatinine. Dr. Sheehan was consulted from Nephrology. Eventually, his diuretics were discontinued and he has been retried with compression wraps for the edema at home. DISCHARGE MANAGEMENT: Discharged home with home health for home PT and compression wraps. ACTIVITY: As tolerated. DIET: Diabetic low-sodium fluid-restricted diet. Home PT and occupational therapy. MEDICATIONS: 1. Albuterol sulfate inhaler and nebs as needed. 2. Atorvastatin 20 mg daily. 3. Dulera 200/5 mcg two puffs twice a day with one inhaler dispensed. 4. Protonix 40 mg daily. 5. Prednisone 20 mg daily as he was on previous 2 hospitalizations. FOLLOWUP: Follow up with Dr. Madden in 1 week as scheduled. Follow up with Dr. Gregg Canales on May 03 at 9:15 a.m., as well as with Dr. Clement Fountain in 1 week. Job ID: [id number]
== END 2018-04-29 17:35 | disposition home health service (06) | DRG 189 ==
LOC: ERS 15:23 → ERHOLD 17:45 → 2NO 04-22 15:12
PROVIDERS: ADMIT Internal Medicine; ATTEND Internal Medicine
PROC: 0DBN8ZX Excision of Sigmoid Colon, Via Natural or Artificial Opening Endoscopic, Diagnostic (ICD-10-PCS; principal; 2018-04-25)
DX: J96.21 Acute and chronic respiratory failure with hypoxia (principal); J44.1 Chronic obstructive pulmonary disease with (acute) exacerbation; C78.7 Secondary malignant neoplasm of liver and intrahepatic bile duct; C19 Malignant neoplasm of rectosigmoid junction; N17.9 Acute kidney failure, unspecified; M48.56XA Collapsed vertebra, not elsewhere classified, lumbar region, initial encounter for fracture; I11.0 Hypertensive heart disease with heart failure; I50.9 Heart failure, unspecified; E11.9 Type 2 diabetes mellitus without complications; K63.5 Polyp of colon; I87.2 Venous insufficiency (chronic) (peripheral); R60.0 Localized edema; K63.89 Other specified diseases of intestine; N14.1 Nephropathy induced by other drugs, medicaments and biological substances; K57.30 Diverticulosis of large intestine without perforation or abscess without bleeding; Z99.81 Dependence on supplemental oxygen; T50.2X5A Adverse effect of carbonic-anhydrase inhibitors, benzothiadiazides and other diuretics, initial encounter; Z87.891 Personal history of nicotine dependence; Z79.84 Long term (current) use of oral hypoglycemic drugs; Z79.52 Long term (current) use of systemic steroids; Z79.899 Other long term (current) drug therapy; Y92.239 Unspecified place in hospital as the place of occurrence of the external cause
CPT/HCPCS: 36415; 36416; 71045; 71250; 72100; 72148; 74178; 76705; 76770; 80048; 80053; 81001; 81015; 82105; 82378; 82550; 82570; 83735; 83880; 83935; 84300; 84484; 85025; 85610; 86301; 87086; 88305; 93005; 93306; 93970; 94640; 96365; 96375; J1644; J1650; J1940; J1956; J2250; J2704; J2920; J3010; J7506; J7620; P9047